=== PATIENT | male | born 1955 | race Caucasian/White ===

== ENCOUNTER 2020-12-28 10:34 | Outpatient (REF) | payer MEDICARE, OTHER, SELFPAY ==
[2020-12-28 13:20] LABS: MANUAL DIFF FLAG NO
[2020-12-28 13:21] LABS: Basophils Absolute Auto 0.1 X10*3/uL (0.0-0.2); Eosinophils Absolute Auto 0.1 X10*3/uL (0.0-0.4); Eosinophils Percent Auto 2.1 % (0-4); Hematocrit 42.9 % (42-52); Imm Gran Abs Auto 0.02 X10*3/uL (0.00-0.03); Imm Gran Pct Auto 0.4 % (0.0-0.4); Lymphocytes Absolute Auto 1.3 X10*3/uL (1.2-4.9); Lymphocytes Percent Auto 26.9 % (20-40); Mean Corpuscular HGB Conc 32.6 g/dl (31.0-36.0); Mean Corpuscular Hemoglobin 30.9 pg (27.0-33.0); Mean Corpuscular Volume 94.7 fL (80-98); Monocytes Absolute Auto 0.6 X10*3/uL (0.1-1.2); Neutrophils Absolute Auto 2.7 X10*3/uL (2.0-8.3); Neutrophils Percent Auto 56.6 % (45-73); Platelet Count 206 X10*3/uL (160-400); Red Blood Count 4.53 X10*6/uL (4.60-5.80); Red Cell Distribution Width 13.2 % (11.0-16.0); White Blood Count 4.8 X10*3/uL (4.8-10.8)
[2020-12-28 13:57] LABS: Alanine Aminotransferase 19 U/L (0-40); Albumin Level 4.2 g/dL (3.5-5.0); Alkaline Phosphatase 44 U/L (39-117); Anion Gap 12 (12-20); Aspartate Amino Transferase 25 U/L (5-37); Bilirubin Total 0.9 mg/dL (0.0-1.0); Blood Urea Nitrogen 18 mg/dL (9-16); Calcium 9.1 mg/dL (8.4-10.2); Carbon Dioxide 28 mmol/L (22-29); Chloride 104 mmol/L (96-108); Cholesterol 175 mg/dL; Estimated Glomerular Filt Rate > 60; Glucose Fasting 96 mg/dL (60-99); HDL Cholesterol 59 mg/dL; LDL Cholesterol Calculated 103 mg/dl; Potassium 4.9 mmol/L (3.3-5.1); Sodium 139 mmol/L (135-145); Total Protein 6.7 g/dL (6.5-8.0); Triglycerides 65 mg/dL
[2020-12-28 15:05] LABS: Prostate Specific Antigen 4.14 ng/mL (<0.05-4.0)
== END 2020-12-28 10:35 | disposition home or self-care (01) ==
LOC: HO.10HDL 10:34
PROVIDERS: Visit Provider Internal Medicine
DX: E78.00 Pure hypercholesterolemia, unspecified (principal); N40.0 Benign prostatic hyperplasia without lower urinary tract symptoms; J45.909 Unspecified asthma, uncomplicated; K57.90 Diverticulosis of intestine, part unspecified, without perforation or abscess without bleeding; Z12.5 Encounter for screening for malignant neoplasm of prostate
CPT/HCPCS: 36415; 80053; 80061; 84153; 85025

== ENCOUNTER 2021-01-24 08:43 | Outpatient (REF) | payer MEDICARE, OTHER, SELFPAY ==
[2021-01-24 13:13] LABS: PSA,Total (Free>4and<10) 4.47 ng/mL (0.00-4.00)
[2021-01-25 11:42] LABS: Free Prostate Spec Ag 0.8 ng/mL; Percent Free Prostate Spec Ag 19 % (calc) (>25); Prostate Specific Ag Total 4.2 ng/mL (< OR = 4.0)
== END 2021-01-24 08:44 | disposition home or self-care (01) ==
LOC: HO.HMGCLDS 08:43
PROVIDERS: PCP Internal Medicine; Visit Provider Internal Medicine
DX: Z12.5 Encounter for screening for malignant neoplasm of prostate (principal); R97.20 Elevated prostate specific antigen [PSA]
CPT/HCPCS: 36415; 84153; 84154

== ENCOUNTER 2021-03-14 10:42 | Outpatient (REF) | payer MEDICARE, OTHER, SELFPAY ==
--- NOTE | ~2021-03-14 | XR_ITS ---
EXAMINATION: XR CHEST CLINICAL INFORMATION: Pneumonia. COMPARISON: Chest radiograph dated 07/31/2012. TECHNIQUE: 2 views of the chest were obtained. FINDINGS: Small left and trace right-sided pleural effusions. Left basilar atelectasis versus early infiltrates. Findings are new when compared to the prior chest radiograph. No pneumothorax. Stable cardiomediastinal silhouette. XR/XR chest 2V IMPRESSION: Small left and trace right-sided pleural effusions as well as left basilar atelectasis versus infiltrates, new when compared to the prior chest radiograph.
== END 2021-03-14 10:43 | disposition home or self-care (01) ==
LOC: HO.XRAY 10:42
PROVIDERS: PCP Internal Medicine; Visit Provider Internal Medicine
DX: D64.9 Anemia, unspecified (principal); J18.9 Pneumonia, unspecified organism
CPT/HCPCS: 71046

== ENCOUNTER 2021-03-22 10:58 | Outpatient (REF) | payer MEDICARE, OTHER, SELFPAY ==
[2021-03-22 13:11] LABS: MANUAL DIFF FLAG NO
[2021-03-22 13:14] LABS: Basophils Absolute Auto 0.1 X10*3/uL (0.0-0.2); Basophils Percent Auto 0.8 % (0-2); Eosinophils Absolute Auto 0.1 X10*3/uL (0.0-0.4); Eosinophils Percent Auto 1.7 % (0-4); Hematocrit 40.9 % (42-52); Hemoglobin 13.7 g/dl (14.0-18.0); Imm Gran Abs Auto 0.04 X10*3/uL (0.00-0.03); Imm Gran Pct Auto 0.5 % (0.0-0.4); Lymphocytes Absolute Auto 1.2 X10*3/uL (1.2-4.9); Lymphocytes Percent Auto 15.3 % (20-40); Mean Corpuscular HGB Conc 33.5 g/dl (31.0-36.0); Mean Corpuscular Hemoglobin 31.2 pg (27.0-33.0); Mean Corpuscular Volume 93.2 fL (80-98); Mean Platelet Volume 9.7 fL (9.4-12.4); Monocytes Absolute Auto 0.9 X10*3/uL (0.1-1.2); Monocytes Percent Auto 11.3 % (2-11); Neutrophils Absolute Auto 5.4 X10*3/uL (2.0-8.3); Neutrophils Percent Auto 70.4 % (45-73); Platelet Count 351 X10*3/uL (160-400); Red Blood Count 4.39 X10*6/uL (4.60-5.80); Red Cell Distribution Width 11.9 % (11.0-16.0); White Blood Count 7.6 X10*3/uL (4.8-10.8)
[2021-03-22 13:53] LABS: Alanine Aminotransferase 39 U/L (0-40); Albumin Level 4.2 g/dL (3.5-5.0); Alkaline Phosphatase 51 U/L (39-117); Anion Gap 13 (12-20); Aspartate Amino Transferase 22 U/L (5-37); Bilirubin Total 0.4 mg/dL (0.0-1.0); Blood Urea Nitrogen 13 mg/dL (9-16); Calcium 9.4 mg/dL (8.4-10.2); Carbon Dioxide 26 mmol/L (22-29); Chloride 106 mmol/L (96-108); Estimated Glomerular Filt Rate > 60; Glucose Random 96 mg/dL (60-115); Potassium 4.4 mmol/L (3.3-5.1); Sodium 141 mmol/L (135-145)
== END 2021-03-22 10:59 | disposition home or self-care (01) ==
LOC: HO.10HDL 10:58
PROVIDERS: PCP Internal Medicine; Visit Provider Internal Medicine
DX: J45.909 Unspecified asthma, uncomplicated (principal); K57.90 Diverticulosis of intestine, part unspecified, without perforation or abscess without bleeding
CPT/HCPCS: 36415; 80053; 81241; 85025

== ENCOUNTER → 2021-03-28 07:38 | Outpatient (REF) | payer MEDICARE, OTHER, SELFPAY ==
--- NOTE | 2021-03-28 07:42 | CA_ITS ---
Transthoracic Echocardiogram Patient (Last, First, Middle): Malik Wylie S Gender: Male Date of : 1955 Age: 66 Procedure Date: 03/28/2021 Procedure Type: Transthoracic Echocardiogram Location: OP Height: 175.26 cm Weight: 67.59 kg BSA: 1.82 m2 Heart Rate: bpm BP: 122 / 60 mmHg Wet Process Technician: Referring MD: Sharan Silva MD Perfusionist: Dariusz Oconnor MD Symptoms: I26.99 PULMONARY EMBOLISOM ,J90 PLEURAL EFFUSION Study Quality: Good ECG Rhythm: Sinus Conclusions: - 1. Normal LV systolic function with impaired relaxation filling pattern 2. Mildly calcified aortic valve with probable early aortic stenosis 3. Normal RV systolic pressure 4. No pericardial effusion Findings Left Ventricle Normal left ventricular size, thickness, and systolic function. The visually estimated ejection fraction is between 60-65%. Spectral Doppler is indicative of an impaired relaxation filling pattern. E/E prime ratio is <8, consistent with normal filling pressures. Evidence suggests grade I (mild) diastolic dysfunction. Right Ventricle Normal right ventricular cavity size and systolic function. Atria The left atrium is normal in size. There is no evidence of interatrial shunt. The right atrium is normal in size. Aortic Valve There is mild calcification of the aortic valve. There is mild thickening of the aortic valve. The aortic valve area is 1.95 cm2. There is no aortic valve regurgitation. Mitral Valve There is mild anterior mitral leaflet thickening. There is mild mitral annular calcification. There is trace mitral valve regurgitation. There is no mitral valve stenosis. Pulmonic Valve The pulmonic valve is likely normal. Tricuspid Valve Likely normal tricuspid valve structure and function. There is trace tricuspid valve regurgitation. The right ventricular systolic pressure is normal. The right ventricular systolic pressure is 19 mmHg. Normal right atrial pressure. There is no evidence of pulmonary hypertension. Great Vessels All visible segments of the aorta are normal in size. The pulmonary artery was not well visualized. Venous The inferior vena cava is normal in size and collapses greater than 50% with inspiration. Pericardium/Pleural There is no evidence of pericardial effusion. Prior Study Comparison No significant change compared to prior study dated: 04/28/2020. Measurements 2D Linear Measurements IVSd: 1.15 0.6-0.9/0.6-1.0 cm LVIDd: 4.13 3.9-5.3/4.2-5.9 cm LVIDd Index: 2.27 2.4-3.2/2.2-3.1 cm/m2 LVIDs: 2.77 2.0-3.6 cm LVPWd: 1.04 0.7-1.1 cm Ao Root: 3.10 2.1-3.5 cm LA Diam: 3.40 2.7-3.8/3.0-4.0 cm LAIDs Index: 1.87 1.5-2.3 cm/m2 LV Mass: 189.27 67-162/88-224 g LV Mass Index: 103.99 43-95/49-115 g/m2 LVOT Diam: 2.10 3.0+(-)1.3 cm 2D Systolic Function EF 4C: 60.50 >55% EF 2C: 69.40 >55% EF BiP: 64.90 >55% Mitral Valve MV Pk E: 0.51 MV PK A: 0.68 MV Decel Time: 217.00 E/A: 0.70 E'Lateral: 6.96 E'Medial: 7.51 E/E' Med: 6.80 E/E' Lat: 7.30 PHT: 63.00 MVA PHT: 3.49 Decel Smyth: 2.35 Aortic Valve AoV Pk Serafin: 1.53 AoV Mn Serafin: 1.08 AoV VTI: 0.33 AoV Pk Grad: 9.00 Aov Mn Grad: 5.00 VIVEK Cont.VTI: 1.95 LVOT LVOT Pk Serafin: 0.83 LVOT Mn Serafin: 0.58 LVOT VTI: 0.19 LVOT Pk Grad: 3.00 LVOT Mn Grad: 2.00 LVOT Diam: 2.10 LVOT Area: 3.46 Diastolic Function MV Pk E: 0.51 MV Pk A: 0.68 E/A: 0.70 E'Medial: 7.51 E/E' Med: 6.80 E' Laterial: 6.96 E/E' Lat: 7.30 Right Ventricle TAPSE (mm): 27.00 Tricuspid Valve TR Pk Serafin: 2.00 TR Pk Grad: 16.00 RA Press: 3.00 RVSP: 19.00 Great Vessels Aorta Ao Root-2D: 3.10 2.0-3.7 cm Pulmonary Valve PV Pk Serafin: 0.86 Peak PV Grad: 3.00 Updated in Other Vendor System with Status of Final Dariusz Oconnor MD electronically signed on 03/28/2021 12:31:59 PM with status of Final
== END ==
LOC: HO.CARD 07:38
PROVIDERS: Visit Provider Internal Medicine
DX: I26.99 Other pulmonary embolism without acute cor pulmonale (principal); J90 Pleural effusion, not elsewhere classified
CPT/HCPCS: 93306

== ENCOUNTER 2021-03-30 15:48 | Outpatient (REF) | payer MEDICARE, OTHER, SELFPAY | END 2021-03-30 15:49 | disposition home or self-care (01) | LOC: HO.LAB 15:48 | PROVIDERS: PCP Internal Medicine; Visit Provider Internal Medicine | DX: I26.99 Other pulmonary embolism without acute cor pulmonale (principal) | CPT/HCPCS: 36415; 81240 ==

== ENCOUNTER 2022-01-11 07:44 | Outpatient (REF) | payer MEDICARE, OTHER, SELFPAY ==
[2022-01-11 11:00] LABS: MANUAL DIFF FLAG NO
[2022-01-11 11:07] LABS: Basophils Percent Auto 0.8 % (0-2); Eosinophils Absolute Auto 0.1 X10*3/uL (0.0-0.4); Eosinophils Percent Auto 2.6 % (0-4); Hematocrit 42.7 % (42.0-52.0); Hemoglobin 14.3 g/dl (14.0-18.0); Imm Gran Abs Auto 0.02 X10*3/uL (0.00-0.03); Imm Gran Pct Auto 0.4 % (0.0-0.4); Lymphocytes Absolute Auto 1.5 X10*3/uL (1.2-4.9); Lymphocytes Percent Auto 29.4 % (20-40); Mean Corpuscular HGB Conc 33.5 g/dl (31.0-36.0); Mean Corpuscular Hemoglobin 31.6 pg (27.0-33.0); Mean Corpuscular Volume 94.3 fL (80.0-98.0); Mean Platelet Volume 10.2 fL (9.4-12.4); Monocytes Absolute Auto 0.6 X10*3/uL (0.1-1.2); Monocytes Percent Auto 12.4 % (2-11); Neutrophils Absolute Auto 2.8 x10*3/uL (2.0-8.3); Neutrophils Percent Auto 54.4 % (45-73); Platelet Count 201 X10*3/uL (160-400); Red Blood Count 4.53 X10*6/uL (4.60-5.80); Red Cell Distribution Width 13.7 % (11.0-16.0); White Blood Count 5.1 X10*3/uL (4.8-10.8)
[2022-01-11 11:24] LABS: Alanine Aminotransferase 21 U/L (0-40); Albumin Level 4.2 g/dL (3.5-5.0); Alkaline Phosphatase 36 U/L (39-117); Anion Gap 11 (12-20); Aspartate Amino Transferase 24 U/L (5-37); Bilirubin Total 1.1 mg/dL (0.0-1.0); Blood Urea Nitrogen 16 mg/dL (9-16); Carbon Dioxide 25 mmol/L (22-29); Chloride 107 mmol/L (96-108); Cholesterol 157 mg/dL; Estimated Glomerular Filt Rate > 60; Glucose Fasting 103 mg/dL (60-99); HDL Cholesterol 52 mg/dL; LDL Cholesterol Calculated 93 mg/dl; Potassium 4.2 mmol/L (3.3-5.1); Sodium 139 mmol/L (135-145); Total Protein 6.6 g/dL (6.5-8.0); Triglycerides 62 mg/dL
== END 2022-01-11 07:45 | disposition home or self-care (01) ==
LOC: HO.HMGCLDS 07:44
PROVIDERS: Visit Provider Internal Medicine
DX: E78.00 Pure hypercholesterolemia, unspecified (principal); N40.0 Benign prostatic hyperplasia without lower urinary tract symptoms; K57.90 Diverticulosis of intestine, part unspecified, without perforation or abscess without bleeding
CPT/HCPCS: 36415; 80053; 80061; 85025

== ENCOUNTER → 2022-03-16 09:16 | Outpatient (REF) | payer MEDICARE, OTHER, SELFPAY ==
--- NOTE | 2022-03-16 09:23 | CA_ITS ---
Transthoracic Echocardiogram Patient (Last, First, Middle): Malik Wylie S Gender: Male Date of : 1955 Age: 67 Procedure Date: 03/16/2022 Procedure Type: Transthoracic Echocardiogram Location: OP Height: 170.18 cm Weight: 68.04 kg BSA: 1.79 m2 Heart Rate: bpm BP: 110 / 80 mmHg Caddy/Caddie Supervisor: TO Referring MD: Sharan Silva MD Bread Stacker: Dariusz Oconnor MD Symptoms: CALCIFIED AV I35.8 Study Quality: Fair ECG Rhythm: Sinus Conclusions: - 1. Normal LV systolic function with grade 1 diastolic dysfunction 2. Mild fibrocalcific aortic valve changes as well as mild mitral calcification noted with normal cardiac valvular Dopplers 3. No pericardial effusion Findings Left Ventricle Normal left ventricular size, thickness, and systolic function. The visually estimated ejection fraction is between 60-65%. Spectral Doppler is indicative of an impaired relaxation filling pattern. E/E prime ratio is <8, consistent with normal filling pressures. Evidence suggests grade I (mild) diastolic dysfunction. Right Ventricle Normal right ventricular cavity size and systolic function. Atria Both atria are normal in size. There is no evidence of interatrial shunt. Aortic Valve There is mild calcification of the aortic valve. There is no aortic valve stenosis. There is no aortic valve regurgitation. Mitral Valve There is mild posterior mitral leaflet thickening. There is mild mitral annular calcification. There is trace mitral valve regurgitation. There is no mitral valve stenosis. Pulmonic Valve The pulmonic valve was not well visualized. Tricuspid Valve Likely normal tricuspid valve structure and function. Tricuspid regurgitation envelope is inadequate for calculation of right ventricular systolic pressure. Normal right atrial pressure. Great Vessels All visible segments of the aorta are normal in size. The pulmonary artery was not well visualized. Venous The inferior vena cava is normal in size and collapses greater than 50% with inspiration. Pericardium/Pleural There is no evidence of pericardial effusion. Measurements 2D Linear Measurements IVSd: 1.19 0.6-0.9/0.6-1.0 cm LVIDd: 3.67 3.9-5.3/4.2-5.9 cm LVIDd Index: 2.05 2.4-3.2/2.2-3.1 cm/m2 LVIDs: 2.32 2.0-3.6 cm LVPWd: 1.26 0.7-1.1 cm LA Diam: 3.50 2.7-3.8/3.0-4.0 cm LAIDs Index: 1.96 1.5-2.3 cm/m2 LV Mass: 186.98 67-162/88-224 g LV Mass Index: 104.46 43-95/49-115 g/m2 LVOT Diam: 2.20 3.0+(-)1.3 cm 2D Systolic Function EF 4C: 57.10 >55% EF 2C: 60.50 >55% EF BiP: 58.10 >55% Mitral Valve MV Pk E: 0.44 MV PK A: 0.56 MV Decel Time: 206.00 E/A: 0.80 E'Lateral: 6.09 E'Medial: 5.12 E/E' Med: 8.50 E/E' Lat: 7.20 PHT: 60.00 MVA PHT: 3.67 Decel [place]: 2.12 Aortic Valve AoV Pk Serafin: 1.27 AoV Mn Serafin: 0.89 AoV VTI: 0.23 AoV Pk Grad: 6.00 Aov Mn Grad: 4.00 VIVEK Cont.VTI: 2.46 LVOT LVOT Pk Serafin: 0.74 LVOT Mn Serafin: 0.50 LVOT VTI: 0.15 LVOT Pk Grad: 2.00 LVOT Mn Grad: 1.00 LVOT Diam: 2.20 LVOT Area: 3.80 Diastolic Function MV Pk E: 0.44 MV Pk A: 0.56 E/A: 0.80 E'Medial: 5.12 E/E' Med: 8.50 E' Laterial: 6.09 E/E' Lat: 7.20 Right Ventricle TAPSE (mm): 22.60 TVS' Serafin: 13.60 Tricuspid Valve RA Press: 3.00 Great Vessels Aorta Sinus of Valsalva: 3.42 2.0-3.[address] [place]: 2.89 1.7-3.4 cm Ao Asc: 3.20 2.1-3.4 cm Updated in Other Vendor System with Status of Final Dariusz Oconnor MD electronically signed on 03/16/2022 2:23:31 PM with status of Final
== END ==
LOC: HO.CARD 09:16
PROVIDERS: PCP Internal Medicine; Visit Provider Internal Medicine
DX: I35.8 Other nonrheumatic aortic valve disorders (principal)
CPT/HCPCS: 93306

== ENCOUNTER 2023-01-03 14:14 | Outpatient (REF) | payer MEDICARE, OTHER, SELFPAY ==
[2023-01-03 16:33] LABS: MANUAL DIFF FLAG NO
[2023-01-03 17:49] LABS: Basophils Absolute Auto 0.1 X10*3/uL (0.0-0.2); Basophils Percent Auto 1.1 % (0-2); Eosinophils Absolute Auto 0.1 X10*3/uL (0.0-0.4); Eosinophils Percent Auto 1.7 % (0-4); Hematocrit 42.8 % (42.0-52.0); Hemoglobin 14.3 g/dl (14.0-18.0); Imm Gran Abs Auto 0.01 X10*3/uL (0.00-0.03); Imm Gran Pct Auto 0.2 % (0.0-0.4); Lymphocytes Absolute Auto 1.7 X10*3/uL (1.2-4.9); Lymphocytes Percent Auto 26.3 % (20-40); Mean Corpuscular HGB Conc 33.4 g/dl (31.0-36.0); Mean Corpuscular Hemoglobin 31.8 pg (27.0-33.0); Mean Corpuscular Volume 95.3 fL (80.0-98.0); Mean Platelet Volume 10.2 fL (9.4-12.4); Monocytes Absolute Auto 0.6 X10*3/uL (0.1-1.2); Monocytes Percent Auto 9.8 % (2-11); Neutrophils Percent Auto 60.9 % (45-73); Platelet Count 215 X10*3/uL (160-400); Red Blood Count 4.49 X10*6/uL (4.60-5.80); Red Cell Distribution Width 13.3 % (11.0-16.0); White Blood Count 6.5 X10*3/uL (4.8-10.8)
[2023-01-03 18:04] LABS: Alanine Aminotransferase 20 U/L (0-40); Albumin Level 4.3 g/dL (3.5-5.0); Alkaline Phosphatase 39 U/L (39-117); Anion Gap 13 (12-20); Aspartate Amino Transferase 26 U/L (5-37); Bilirubin Total 1.2 mg/dL (0.0-1.0); Blood Urea Nitrogen 14 mg/dL (9-16); Calcium 9.6 mg/dL (8.4-10.2); Carbon Dioxide 26 mmol/L (22-29); Chloride 108 mmol/L (96-108); Cholesterol 172 mg/dL; Estimated Glomerular Filt Rate > 60; Glucose Fasting 98 mg/dL (60-99); HDL Cholesterol 50 mg/dL; LDL Cholesterol Calculated 99 mg/dl; Potassium 4.6 mmol/L (3.3-5.1); Sodium 142 mmol/L (135-145); Total Protein 6.7 g/dL (6.5-8.0); Triglycerides 115 mg/dL
== END 2023-01-03 14:15 | disposition home or self-care (01) ==
LOC: HO.HMGCLDS 14:14
PROVIDERS: PCP Internal Medicine; Visit Provider Internal Medicine
DX: Z00.00 Encounter for general adult medical examination without abnormal findings (principal); E78.9 Disorder of lipoprotein metabolism, unspecified; Z20.2 Contact with and (suspected) exposure to infections with a predominantly sexual mode of transmission
CPT/HCPCS: 36415; 80053; 80061; 83735; 85025

== ENCOUNTER 2023-03-14 14:47 | Outpatient (REF) | payer MEDICARE, OTHER, SELFPAY ==
[2023-03-14 16:32] LABS: Appearance Urine Clear; Color Urine Yellow; Glucose Urine UA Negative (Negative); Leukocyte Esterase Urine Negative (Negative); Nitrite Urine Negative (Negative); PH 5.5 (5.0-9.0); Urine Blood Negative (Negative); Urine Ketones 15 mg/dL (Negative); Urine Protein Trace mg/dL (Neg-Trace)
== END 2023-03-14 14:48 | disposition home or self-care (01) ==
LOC: HO.LAB 14:47
PROVIDERS: PCP Internal Medicine; Visit Provider Internal Medicine
DX: R30.0 Dysuria (principal)
CPT/HCPCS: 81003; 87086

== ENCOUNTER 2023-08-09 10:53 | Outpatient (REF) | payer MEDICARE, OTHER, SELFPAY ==
--- NOTE | ~2023-08-09 | XR_ITS ---
EXAMINATION: XR CHEST CLINICAL INFORMATION: Cough. COMPARISON: Chest radiograph 03/14/2021. TECHNIQUE: 2 views of the chest were obtained. FINDINGS: Normal appearance of the cardiomediastinal silhouette. Central peribronchial cuffing. No dense consolidation, pleural effusion or pneumothorax. Subtle approximately 0.9 cm nodular-like density projecting over the left lower lobe in between the anterior left-sided fifth and sixth ribs. Thoracic spondylosis. No acute osseous findings. XR/XR chest 2V IMPRESSION: 1. Central peribronchial cuffing which is nonspecific and could be associated with asthma, bronchitis, reactive airways disease or atypical infections. 2. Subtle nodular-like density projecting over the left lower lobe. Recommend correlation with a chest CT. The report will be called to the ordering clinician by a [place] [facility] Physician Dental Ceramist Assistant.
== END 2023-08-09 10:54 | disposition home or self-care (01) ==
LOC: HO.XRAY 10:53
PROVIDERS: PCP Internal Medicine; Visit Provider Internal Medicine
DX: R05.9 Cough, unspecified (principal); R50.9 Fever, unspecified
CPT/HCPCS: 71046

== ENCOUNTER 2023-09-03 11:53 | Outpatient (REF) | payer MEDICARE, OTHER, SELFPAY ==
--- NOTE | ~2023-09-03 | XR_ITS ---
EXAMINATION: XR CHEST CLINICAL INFORMATION: Follow-up pneumonia COMPARISON: Chest x-ray on 08/09/2023 TECHNIQUE: 2 views of the chest were obtained. FINDINGS: vascularity. LUNGS: Lungs are clear. Persistent peribronchial cuffing is seen. No pneumothorax is seen. BONES: Bony skeleton is intact. XR/XR chest 2V IMPRESSION: 1. Unchanged peribronchial cuffing, compatible with chronic bronchitis. 2. Interval resolution of the subtle nodular density in left lower mid lung. 3. No radiographic signs of acute cardiopulmonary process.
== END 2023-09-03 11:54 | disposition home or self-care (01) ==
LOC: HO.XRAY 11:53
PROVIDERS: PCP Internal Medicine; Visit Provider Internal Medicine
DX: J18.9 Pneumonia, unspecified organism (principal)
CPT/HCPCS: 71046

== ENCOUNTER 2023-10-19 12:13 | Outpatient (REF) | payer MEDICARE, OTHER, SELFPAY ==
[2023-10-19 12:41] LABS: MANUAL DIFF FLAG NO
[2023-10-19 12:45] LABS: Basophils Absolute Auto 0.1 X10*3/uL (0.0-0.2); Eosinophils Absolute Auto 0.2 X10*3/uL (0.0-0.4); Eosinophils Percent Auto 2.8 % (0-4); Hematocrit 42.6 % (42.0-52.0); Hemoglobin 14.6 g/dl (14.0-18.0); Imm Gran Abs Auto 0.04 X10*3/uL (0.00-0.03); Imm Gran Pct Auto 0.6 % (0.0-0.4); Lymphocytes Absolute Auto 1.6 X10*3/uL (1.2-4.9); Lymphocytes Percent Auto 23.9 % (20-40); Mean Corpuscular HGB Conc 34.3 g/dl (31.0-36.0); Mean Corpuscular Hemoglobin 31.9 pg (27.0-33.0); Mean Platelet Volume 9.6 fL (9.4-12.4); Monocytes Absolute Auto 0.8 X10*3/uL (0.1-1.2); Monocytes Percent Auto 11.5 % (2-11); Neutrophils Absolute Auto 4.1 x10*3/uL (2.0-8.3); Neutrophils Percent Auto 60.2 % (45-73); Platelet Count 221 X10*3/uL (160-400); Red Blood Count 4.58 X10*6/uL (4.60-5.80); Red Cell Distribution Width 13.4 % (11.0-16.0); White Blood Count 6.8 X10*3/uL (4.8-10.8)
[2023-10-19 13:39] LABS: Anion Gap 12 (12-20); Blood Urea Nitrogen 17 mg/dL (9-16); C Reactive Protein < 0.10 mg/dL (< or = 0.50); Calcium 9.6 mg/dL (8.4-10.2); Carbon Dioxide 26 mmol/L (22-29); Chloride 106 mmol/L (96-108); Estimated Glomerular Filt Rate > 60; Glucose Random 98 mg/dL (60-115); Potassium 4.1 mmol/L (3.3-5.1); Sodium 140 mmol/L (135-145)
[2023-10-22 09:49] LABS: Alpha 1 Anti-trypsin 163 mg/dL (83-199)
== END 2023-10-19 12:14 | disposition home or self-care (01) ==
LOC: HO.10HDL 12:13
PROVIDERS: Visit Provider Internal Medicine
DX: J40 Bronchitis, not specified as acute or chronic (principal); Z87.440 Personal history of urinary (tract) infections
CPT/HCPCS: 36415; 80048; 82103; 85025; 86140

== ENCOUNTER 2024-01-10 10:37 | Outpatient (REF) | payer MEDICARE, OTHER, SELFPAY ==
[2024-01-10 11:42] LABS: MANUAL DIFF FLAG NO
[2024-01-10 12:45] LABS: Basophils Absolute Auto 0.1 X10*3/uL (0.0-0.2); Basophils Percent Auto 1.1 % (0-2); Eosinophils Percent Auto 0.6 % (0-4); Hematocrit 38.8 % (42.0-52.0); Hemoglobin 13.3 g/dl (14.0-18.0); Imm Gran Abs Auto 0.02 X10*3/uL (0.00-0.03); Imm Gran Pct Auto 0.3 % (0.0-0.4); Lymphocytes Absolute Auto 1.6 X10*3/uL (1.2-4.9); Lymphocytes Percent Auto 26.1 % (20-40); Mean Corpuscular HGB Conc 34.3 g/dl (31.0-36.0); Mean Corpuscular Hemoglobin 32.4 pg (27.0-33.0); Mean Corpuscular Volume 94.6 fL (80.0-98.0); Mean Platelet Volume 9.8 fL (9.4-12.4); Monocytes Absolute Auto 0.6 X10*3/uL (0.1-1.2); Monocytes Percent Auto 9.9 % (2-11); Neutrophils Absolute Auto 3.8 x10*3/uL (2.0-8.3); Platelet Count 218 X10*3/uL (160-400); Red Cell Distribution Width 14.4 % (11.0-16.0); White Blood Count 6.2 X10*3/uL (4.8-10.8)
[2024-01-15 13:03] LABS: Class Alternaria alternata 0; Class Aspergillus fumigatus 0; Class Bermuda Grass 0; Class Birch 0; Class Cat Dander 0; Class Cladosporium herbarum 0; Class Cockroach 0; Class Common Ragweed 0/1; Class Cottonwood 0; Class Derm. pterony 1; Class Dermatophagoides farinae 1; Class Dog Dander 0; Class Elm 0; Class Maple Box Elder 0; Class Mountain Cedar 0; Class Mouse Urine Protein 0; Class Mugwort 0; Class Oak 0; Class Penicillium crysogenum 0; Class Rough Pigweed 0; Class Sheep Sorrel 0; Class Sycamore 0; Class Timothy Grass 0; Class Walnut Tree 0; Class White Ash 0; Class White Mulberry 0; D001 IgE D pteronyssinus 0.44 kU/L; D002 - IgE D farinae 0.37 kU/L; E001 - IgE Cat Dander <0.10 kU/L; E005 - IgE Dog Dander <0.10 kU/L; E072-IgE Mouse Urine <0.10 kU/L; G002 IgE Bermuda Grass <0.10 kU/L; G006 - IgE Timothy Grass <0.10 kU/L; I006-IgE Cockroach, German <0.10 kU/L; Immunoglobulin E 7 kU/L (<OR=114); M001 IgE Penicillium chrysogen <0.10 kU/L; M002 - IgE Cladosporium herbar <0.10 kU/L; M003 - IgE Aspergillus fumigat <0.10 kU/L; M006 - IgE Alternaria alternat <0.10 kU/L; T001 IgE Maple/Box Elder <0.10 kU/L; T003 IgE Common Silver Birch <0.10 kU/L; T006 - IgE Cedar, Mountain <0.10 kU/L; T007 - IgE Oak, White <0.10 kU/L; T008 IgE Elm, American <0.10 kU/L; T010 - IgE Walnut <0.10 kU/L; T011 - IgE Maple Leaf Sycamore <0.10 kU/L; T014 - IgE Cottonwood <0.10 kU/L; T015 - IgE Ash, White <0.10 kU/L; T070 - IgE White Mulberry <0.10 kU/L; W001 - IgE Ragweed, Short 0.12 kU/L; W006 - IgE Mugwort <0.10 kU/L; W014 IgE Pigweed, Common <0.10 kU/L; W018 IgE Sheep Sorrel <0.10 kU/L
== END 2024-01-10 10:38 | disposition home or self-care (01) ==
LOC: HO.LAB 10:37
PROVIDERS: PCP Internal Medicine; Visit Provider Internal Medicine Pulmonary Disease
DX: J42 Unspecified chronic bronchitis (principal); Z91.09 Other allergy status, other than to drugs and biological substances
CPT/HCPCS: 36415; 82785; 85025; 86003; 99202

== ENCOUNTER 2024-01-10 10:37 | Outpatient (AMB) | payer MEDICARE, OTHER, SELFPAY ==
[2024-01-10 10:39] VITALS: BP 124/86; PULSE 106; O2SAT 100; BMI 10.5
--- NOTE | 2024-01-10 10:39 | MHC.OFFVIS ---
Vital Signs 01/10/24 10:39 Height 5 ft 7 in Weight 67 lb BMI 10.5 BP 124/86 Blood Pressure Location Rt brachial Position Sitting Pulse 106 H Pulse Source Doppler Pulse Oximetry (%) 100 Oxygen Delivery Method Room Air Intake Visit Reasons: bronchitis Allergies Penicillins Allergy (Severe, Verified 01/10/24 10:47) hives Sulfa (Sulfonamide Antibiotics) Allergy (Severe, Verified 01/10/24 10:47) Hives HPI HPI bronchitis: Details: 69-year-old gentleman, nonsmoker, with recent history of bronchitic symptoms ongoing since July of 2023, treated with several courses of antibiotic /prednisone, also tried on Wixela and albuterol MDI essentially with no significant changes. Patient did have CT chest that was essentially. Patient does state that his symptoms resolved when he was on vacation to [facility] And recalls when he came back. Patient does have a history of prior environmental allergies with allergy injections approximately 20 years prior. Does not have any pets at this time. Patient denies exposure to industrial dusts. [facility] Social History (Updated 01/10/24 @ 10:49 by Genie Patel [facility]) Patient Tobacco Use Status: Never used Tobacco Review of Systems Card Denies dyspnea and Denies dyspnea on exertion Resp Reports cough, Reports excessive phlegm production, Denies dyspnea, Denies dyspnea on exertion and Reports wheezing ( Inspiratory) Aller/Immun Reports wheezing ( Inspiratory) Physical Exam Vital Signs: Last Vital Signs Pulse 106 H 01/10/24 10:39 BP 124/86 01/10/24 10:39 Pulse Ox 100 01/10/24 10:39 Oxygen Delivery Method Room Air 01/10/24 10:39 BMI result Body Mass Index 10.5 Const General: no acute distress and alert Nutritional Appearance: not obese Orientation/consciousness: Other orientation findings ( oriented) HEENT Head: Yes atraumatic Eyes General: appearance normal, both eyes and all related structures Sclerae: sclerae normal EOM: EOMs intact bilaterally Neck Neck: Yes supple Lymphatic: no lymphadenopathy noted Resp Effort & Inspection: normal respiratory effort and no use of accessory muscles Auscultation: clear to auscultation bilaterally Cardio Rate: regular rate Rhythm: regular rhythm Heart sounds: no gallops, no murmurs and no rubs Skin General skin exam: other ( warm) Extrem General: No clubbing, No cyanosis and No edema Assessment & Plan Assessment & Plan (1) Environmental allergies: Code(s): Z91.09 - Other allergy status, other than to drugs and biological substances Category: Medical (2) Chronic bronchitis: Code(s): J42 - Unspecified chronic bronchitis Category: Medical Plan results of CT chest from [facility] reviewed and essentially normal. Likely underlying allergic bronchitis. Will obtain IgE level, CBC with differential, and RAST panel for further evaluation. Orders: Orders Resp Allergy Profile Region I Today Z91.09 - Other allergy status, other than to drugs and biological substances Complete Blood Count Auto Diff Today Z91.09 - Other allergy status, other than to drugs and biological substances Coding Level of Care Code New Pt Level 4 (85928) Diagnoses Environmental allergies Z91.09 Chronic bronchitis J42
== END 2024-01-10 11:09 | disposition home or self-care (01) ==
PROVIDERS: PCP Internal Medicine; Visit Provider Internal Medicine Pulmonary Disease
DX: Z91.09 Other allergy status, other than to drugs and biological substances (principal); J42 Unspecified chronic bronchitis
CPT/HCPCS: 99204

== ENCOUNTER 2024-03-18 10:00 | Outpatient (REF) | payer MEDICARE, OTHER, SELFPAY ==
[2024-03-18 13:38] LABS: MANUAL DIFF FLAG NO
[2024-03-18 13:44] LABS: Basophils Absolute Auto 0.1 X10*3/uL (0.0-0.2); Eosinophils Absolute Auto 0.1 X10*3/uL (0.0-0.4); Eosinophils Percent Auto 1.8 % (0-4); Hemoglobin 14.6 g/dl (14.0-18.0); Imm Gran Abs Auto 0.01 X10*3/uL (0.00-0.03); Imm Gran Pct Auto 0.2 % (0.0-0.4); Lymphocytes Absolute Auto 1.6 X10*3/uL (1.2-4.9); Lymphocytes Percent Auto 27.3 % (20-40); Mean Corpuscular Hemoglobin 31.6 pg (27.0-33.0); Mean Corpuscular Volume 93.1 fL (80.0-98.0); Mean Platelet Volume 9.7 fL (9.4-12.4); Monocytes Absolute Auto 0.7 X10*3/uL (0.1-1.2); Monocytes Percent Auto 12.2 % (2-11); Neutrophils Absolute Auto 3.4 x10*3/uL (2.0-8.3); Neutrophils Percent Auto 57.5 % (45-73); Platelet Count 230 X10*3/uL (160-400); Red Blood Count 4.62 X10*6/uL (4.60-5.80); Red Cell Distribution Width 12.4 % (11.0-16.0)
[2024-03-18 13:59] LABS: Alanine Aminotransferase 20 U/L (0-40); Albumin Level 4.3 g/dL (3.5-5.0); Alkaline Phosphatase 48 U/L (39-117); Anion Gap 13 (12-20); Aspartate Amino Transferase 24 U/L (5-37); Bilirubin Total 0.5 mg/dL (0.0-1.0); Blood Urea Nitrogen 16 mg/dL (9-16); Calcium 9.8 mg/dL (8.4-10.2); Carbon Dioxide 26 mmol/L (22-29); Chloride 105 mmol/L (96-108); Cholesterol 181 mg/dL (<200); Estimated Glomerular Filt Rate > 60; Glucose Fasting 105 mg/dL (60-99); HDL Cholesterol 52 mg/dL (>40); LDL Cholesterol Calculated 110 mg/dL (<100); Potassium 4.4 mmol/L (3.3-5.1); Sodium 140 mmol/L (135-145); Total Protein 7.2 g/dL (6.5-8.0); Triglycerides 97 mg/dL (<150)
[2024-03-18 14:19] LABS: Prostate Specific Antigen Scr 8.02 ng/mL (<0.05-4.0)
== END 2024-03-18 10:01 | disposition home or self-care (01) ==
LOC: HO.HMGCLDS 10:00
PROVIDERS: PCP Internal Medicine; Visit Provider Internal Medicine
DX: Z12.5 Encounter for screening for malignant neoplasm of prostate (principal); E78.00 Pure hypercholesterolemia, unspecified; N40.0 Benign prostatic hyperplasia without lower urinary tract symptoms; K57.90 Diverticulosis of intestine, part unspecified, without perforation or abscess without bleeding
CPT/HCPCS: 36415; 80053; 80061; 84153; 85025

== ENCOUNTER 2024-04-04 09:10 | Outpatient (AMB) | payer MEDICARE, OTHER, SELFPAY ==
--- NOTE | 2024-04-04 09:14 | MHC.OFFVIS ---
Vital Signs 04/04/24 09:15 Height 5 ft 7 in Weight 151 lb 0.266 oz BMI 23.6 BP 132/78 Blood Pressure Location Lt brachial Position Sitting Pulse 83 Pulse Source Doppler Pulse Oximetry (%) 98 Oxygen Delivery Method Room Air Intake Visit Reasons: Bronchitis Allergies Penicillins Allergy (Severe, Verified 01/10/24 10:47) hives Sulfa (Sulfonamide Antibiotics) Allergy (Severe, Verified 01/10/24 10:47) Hives HPI HPI Bronchitis: Details: 69-year-old gentleman, nonsmoker, with recent history of bronchitic symptoms ongoing since July of 2023, treated with several courses of antibiotic /prednisone, also tried on Wixela and albuterol MDI essentially with no significant changes. Patient did have CT chest that was essentially normal. Patient does state that his symptoms resolved when he was on vacation to [facility] and return when he came back. Patient does have a history of prior environmental allergies with allergy injections approximately 20 years prior. Does not have any pets at this time. Patient denies exposure to industrial dusts. After the last office visit patient had immunologic testing showing allergies to adequate and dust mites. He is interested in sublingual immunologic therapy. Patient also states that with change in weather his symptoms also improved somewhat. [facility] Social History (Updated 01/10/24 @ 10:49 by TANMAY Yu) Patient Tobacco Use Status: Never used Tobacco Physical Exam Vital Signs: Last Vital Signs Pulse 83 04/04/24 09:15 BP 132/78 04/04/24 09:15 Pulse Ox 98 04/04/24 09:15 Oxygen Delivery Method Room Air 04/04/24 09:15 BMI result Body Mass Index 23.6 Const General: no acute distress and alert Nutritional Appearance: not obese HEENT Head: Yes atraumatic Eyes General: appearance normal, both eyes and all related structures Sclerae: sclerae normal EOM: EOMs intact bilaterally Neck Neck: Yes supple Lymphatic: no lymphadenopathy noted Resp Effort & Inspection: normal respiratory effort and no use of accessory muscles Cardio Rate: regular rate Skin General skin exam: other ( warm) Extrem General: No clubbing and No cyanosis Assessment & Plan Assessment & Plan (1) Chronic bronchitis: Code(s): J42 - Unspecified chronic bronchitis Category: Medical (2) Environmental allergies: Code(s): Z91.09 - Other allergy status, other than to drugs and biological substances Category: Medical Plan Appears to have environmental allergies as minute etiology for his symptoms. At this time patient was to discuss possible sublingually immunologic therapy with ENT. Coding Level of Care Code Est Pt Level 3 (16840) Diagnoses Chronic bronchitis J42 Environmental allergies Z91.09
[2024-04-04 09:15] VITALS: BP 132/78; PULSE 83; O2SAT 98; BMI 23.6
== END 2024-04-04 09:36 | disposition home or self-care (01) ==
PROVIDERS: PCP Internal Medicine; Visit Provider Internal Medicine Pulmonary Disease
DX: J42 Unspecified chronic bronchitis (principal); Z91.09 Other allergy status, other than to drugs and biological substances
CPT/HCPCS: 99213

== ENCOUNTER → 2024-04-04 09:10 | Outpatient (BNVA) | payer MEDICARE, OTHER, SELFPAY | PROVIDERS: PCP Internal Medicine; Visit Provider Internal Medicine Pulmonary Disease | DX: J42 Unspecified chronic bronchitis (principal); Z91.09 Other allergy status, other than to drugs and biological substances | CPT/HCPCS: 99212 ==

== ENCOUNTER 2024-10-20 11:21 | Outpatient (AMB) | payer MEDICARE, OTHER, SELFPAY ==
[2024-10-20 11:40] VITALS: BP 122/74; PULSE 88; TEMP 36.5; O2SAT 99; BMI 23.8
--- NOTE | 2024-10-20 11:40 | A.OFFPC_ITS ---
Vital Signs 10/20/24 11:40 Height 5 ft 7 in Weight 152 lb BMI 23.8 BP 122/74 Blood Pressure Location Lt brachial Position Sitting Pulse 88 Pulse Source Pulse Oximeter Temp 97.7 F Temp Source Temporal Artery Scan Pulse Oximetry (%) 99 Oxygen Delivery Method Room Air Intake Visit Reasons: Oral Thrush Hammer Fitter Required: No Accompanied by: Self / Same As Patient Allergies Penicillins Allergy (Severe, Verified 10/20/24 11:41) hives Sulfa (Sulfonamide Antibiotics) Allergy (Severe, Verified 10/20/24 11:41) Hives Tobacco use date assessed: 10/20/24 Fall risk assessment: No Falls in past year Last assessed Fall Risk: 10/20/24 Dental Screening Dental Screen Date: 10/20/24 Did you have a dental visit in the last 12 months?: Yes Did you have a dental problem in the last 6 months where you did not have access to dental care?: No PFSH Family History (Updated 10/20/24 @ 12:06 by TANMAY Cancino) Mother Cancer Father Blood clot in vein Social History Housing: Apartment Patient Tobacco Use Status: Never used Tobacco e-Cigarette/Vaping Use: Never Used service: No Current occupational status: retired Cognitive needs: No Hearing needs: No Vision needs: Yes (rx glasses) Questionnaire PHQ-9 Over the last 2 weeks, how often have you been bothered by any of the following problems? 1. Little interest or pleasure in doing things: not at all 2. Feeling down, depressed, or hopeless: not at all 3. Trouble falling or staying asleep, or sleeping too much: not at all 4. Feeling tired or having little energy: not at all 5. Poor appetite or overeating: not at all 6. Feeling bad about yourself - or that you are a failure or have let yourself or your family down: not at all 7. Trouble concentrating on things, such as reading the newspaper or watching television: not at all 8. Moving or speaking so slowly that other people could have noticed. Or the opposite - being so fidgety or restless that you have been moving around a lot more than usual: not at all 9. Thoughts that you would be better off or of hurting yourself in some way: not at all Total score: 0 Source: Developed by Drs. Foreign Moffett, Belia Tapia, Bhavesh Ty and colleagues, with an educational jean from [employer]. Thrive Questionnaire Date Thrive assessed: 10/20/24 I am a: Patient Within the past 12 months, did the food you bought not last and you didn't have the money to get more?: Never true Within the past 12 months, did you worry whether your food would run out before you got money to buy more?: Never true Do you have trouble paying for medicines?: No Do you have trouble getting transportation to medical appointments?: No Do you have trouble paying your heating and electricity bill?: No Do you have trouble taking care of your child, family member or friend?: No Do you have trouble with day-to-day activities such as bathing, preparing meals, shopping, managing finances, etc.?: No Are you currently unemployed and looking for a job?: No Are you interested in more education?: No THRIVE Score: 0 AUDIT C Alcohol Use Questionnaire (AUDIT-C) 1. How often do you have a drink containing alcohol?: 4 or more times a week 2. How many drinks containing alcohol do you have on a typical day when you are drinking?: 1 or 2 3. How often do you have six or more drinks on one occasion?: Never Total Score: 4 LA-7 AMB Questionnaire LA-7 Date LA - 7 assessed: 10/20/24 Feeling nervous, anxious, or on edge: 0 = Not at all Not being able to stop or control worryin = Not at all Worrying too much about different things: 0 = Not at all Trouble relaxin = Not at all Being so restless that it is hard to sit still: 0 = Not at all Becoming easily annoyed or irritable: 0 = Not at all Feeling afraid as if something awful might happen: 0 = Not at all Total LA-7 score (0-4 normal; 5-9 mild; 10-14 moderate; 15-21 severe): 0 Source: Developed by Drs. Foreign Moffett, Bhavesh Roberson and colleagues, with an educational jean from [employer]. Physical exam (Primary Care) Vital Signs: Last Vital Signs Temp 97.7 F 10/20/24 11:40 Pulse 88 10/20/24 11:40 BP 122/74 10/20/24 11:40 Pulse Ox 99 10/20/24 11:40 Oxygen Delivery Method Room Air 10/20/24 11:40 BMI result Body Mass Index 23.8 Tobacco/Smoking Status: Tobacco use Status Tobacco use date assessed 10/20/24 10/20/24 11:43 Patient Tobacco Use Status Never used Tobacco 10/20/24 11:43 e-Cigarette/Vaping Use Never Used 10/20/24 11:43 PHQ-9: PHQ-9 Score PHQ-9: Total score 0 10/20/24 15:20 Thrive Assessment: Date of Thrive Assessment Date Thrive assessed 10/20/24 10/20/24 11:43 Coding Level of Care Code New Pt Level 4 (14183) Complex EM visit Add On G2211 Diagnoses Oral candidiasis B37.0 Assessment & Plan Assessment & Plan (1) Oral candidiasis: Code(s): B37.0 - Candidal stomatitis Plan: History of Present Illness The patient is a 69-year-old male presenting with concern for oral thrush. Symptoms began on Sunday morning with a whitish appearance in the oral cavity, which the patient associated with thrush after internet research. He experiences a mild burning sensation and dry mouth but denies other symptoms such as significant difficulty swallowing. He has no history of oral thrush and uses an inhaler for allergies infrequently; the last usage was more than a few weeks ago. The patient maintains oral hygiene by brushing and flossing regularly, and he has not noted any unusual odors from his mouth. 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 - Reports regular oral hygiene practices including twice-daily brushing and daily flossing. Review of Systems - Oral: Reports dry mouth, mild burning sensation. - Gastrointestinal: Denies significant difficulty swallowing. Physical Exam General: Cooperative and healthy appearing Nutritional Appearance: Well nourished Orientation/consciousness: Patient oriented x3 Limitations: No limitations Head: Normal to inspection General: Appearance normal, both eyes and all related structures Neck: Normal visual inspection Chest: Normal palpation of entire chest wall Respiratory: Normal respiratory effort Neurology: Patient oriented x3 Oral Cavity: tongue is fissured, mildly erythematous. Results Plan The patient is treated for oral candidiasis with clotrimazole troches four times daily for two weeks. Patient education included the administration of the troches. An EpiPen was prescribed for allergy management, particularly during upcoming travel. Semi-annual visits are deemed appropriate for the patient's ongoing care, with a potential wellness exam in December. The presentation, lack of complicating factors, and patient's understanding of treatment support this plan. Patient was informed and verbally consented to the use of an ambient scribe for clinic note documentation during this visit. Discussion Notes I explained to the patient that the current symptoms are consistent with oral candidiasis, likely linked to infrequent use of an inhaler or changes in oral linsey. We discussed the treatment plan using clotrimazole troches, emphasizing administration and potential mild side effects. I recommended maintaining good oral hygiene to prevent recurrence and highlighted the importance of rinsing the mouth after inhaler use. An EpiPen was prescribed for allergy management, especially considering travel plans. I advised on routine follow-up and the option to schedule a wellness check in December given changes in the practice environment and patient priorities. Patient Instructions - Take Mycelex (clotrimazole) troches four times daily; let it melt on the tongue. - Allow a few minutes post-administration before drinking water or other beverages. - Maintain good oral hygiene with regular brushing and flossing. - Rinse mouth after using an inhaler. - Use EpiPen as prescribed for allergic reactions during travel. - Schedule a wellness check in December for preventive care. - Follow up every six months unless symptoms worsen. Medications: New clotrimazole 10 mg mucous membrane TID 42 tabs 0RF
== END 2024-10-20 12:52 | disposition home or self-care (01) ==
LOC: HO.HMCHD 11:21
PROVIDERS: PCP Internal Medicine; Visit Provider Internal Medicine
DX: B37.0 Candidal stomatitis (principal)

== ENCOUNTER → 2024-10-20 11:21 | Outpatient (BNVA) | payer MEDICARE, OTHER, SELFPAY | PROVIDERS: PCP Internal Medicine; Visit Provider Internal Medicine | DX: B37.0 Candidal stomatitis (principal) | CPT/HCPCS: 99202 ==

== ENCOUNTER 2024-12-05 09:59 | Outpatient (AMB) | payer MEDICARE, OTHER, SELFPAY ==
--- NOTE | 2024-12-05 10:02 | MHC.PC.OV ---
Vital Signs 12/05/24 10:07 Height 5 ft 7 in Weight 68.039 kg BMI 23.5 BP 133/82 Respiration 16 Pulse 70 Pulse Source Pulse Oximeter Temp 97.6 F Temp Source Temporal Artery Scan Pulse Oximetry (%) 99 Oxygen Delivery Method Room Air Intake Visit Reasons: Thrush? [employer] Required: No Accompanied by: Self / Same As Patient Allergies Penicillins Allergy (Severe, Verified 12/05/24 10:02) hives Sulfa (Sulfonamide Antibiotics) Allergy (Severe, Verified 12/05/24 10:02) Hives Medication List - Last Reconciled 12/05/24 by MILTON Clinton albuterol sulfate 90 mcg/actuation inhalation apixaban (Eliquis) 2.5 mg PO BID atorvastatin 20 mg PO DAILY epinephrine (EpiPen) 0.3 mg (0.3 mL) IM .Q15 min PRN fluconazole Take 2 tabs today, then 1 tab daily to complete 10 days of treatment; tadalafil 20 mg PO tamsulosin 0.4 mg PO QPM Tobacco use date assessed: 12/05/24 Fall risk assessment: No Falls in past year Last assessed Fall Risk: 12/05/24 Dental Screening Dental Screen Date: 12/05/24 Did you have a dental visit in the last 12 months?: Yes Did you have a dental problem in the last 6 months where you did not have access to dental care?: No Was dental information given to patient?: Patient has dentist HPI HPI Comments History of Present Illness Details 69-year-old male with history of BPH and elevated PSA, hyperlipidemia, and history of bilateral PE following COVID-19 infection presents to the office today to establish care, routine follow-up, and evaluation of thrush. He states that since the end of September, he has had white spots on his tongue and tongue discomfort. Denies any sore throat or dysphagia. He has been prescribed clotrimazole which he used as prescribed with minimal improvement. He denies any unsafe prepped 6 practices and eats a healthy diet, stresses managed. No history of diabetes. No recent steroid therapy or antibiotics. He does wear a mouth guard at night and reports a cleanses nightly with a toothbrush and toothpaste in places and warm water during the day. He does use albuterol inhaler but has not used this in some time. No ICS. He does continue on Eliquis for history of bilateral PE and per Hematology at [facility], will remain on this indefinitely. No bleeding or easy bruisability. He is following with [facility] for management of his BPH as well as elevated PSA. He has undergone 2 prostate biopsies which have been negative. [facility] Medical History (Updated 12/05/24 @ 10:34 by MILTON Clinton) Chronic bronchitis BPH (benign prostatic hyperplasia) Elevated PSA Bilateral pulmonary embolism Hyperlipidemia Surgical History History of colonoscopy (~04/02/15) Family History Mother Cancer Father Blood clot in vein Social History Housing: Apartment Patient Tobacco Use Status: Never used Tobacco e-Cigarette/Vaping Use: Never Used service: No Current occupational status: retired Cognitive needs: No Hearing needs: No Vision needs: Yes (rx glasses) Questionnaire PHQ-9 Over the last 2 weeks, how often have you been bothered by any of the following problems? 1. Little interest or pleasure in doing things: not at all 2. Feeling down, depressed, or hopeless: not at all 3. Trouble falling or staying asleep, or sleeping too much: not at all 4. Feeling tired or having little energy: not at all 5. Poor appetite or overeating: not at all 6. Feeling bad about yourself - or that you are a failure or have let yourself or your family down: not at all 7. Trouble concentrating on things, such as reading the newspaper or watching television: not at all 8. Moving or speaking so slowly that other people could have noticed. Or the opposite - being so fidgety or restless that you have been moving around a lot more than usual: not at all 9. Thoughts that you would be better off or of hurting yourself in some way: not at all Total score: 0 Source: Developed by Drs. Foreign Moffett, Belia Tapia, Bhavesh Ty and colleagues, with an educational jean from [employer]. Thrive Questionnaire Date Thrive assessed: 12/05/24 I am a: Patient What is your living situation today?: I have a steady place to live Within the past 12 months, did the food you bought not last and you didn't have the money to get more?: Never true Within the past 12 months, did you worry whether your food would run out before you got money to buy more?: Never true Do you have trouble paying for medicines?: No Do you have trouble getting transportation to medical appointments?: No Do you have trouble paying your heating and electricity bill?: No Do you have trouble taking care of your child, family member or friend?: No Do you have trouble with day-to-day activities such as bathing, preparing meals, shopping, managing finances, etc.?: No Are you currently unemployed and looking for a job?: No Are you interested in more education?: No Please select the resources that you would like help with: None THRIVE Score: 0 AUDIT C Alcohol Use Questionnaire (AUDIT-C) 1. How often do you have a drink containing alcohol?: 4 or more times a week Total Score: 4 LA-7 AMB Questionnaire LA-7 Date LA - 7 assessed: 12/05/24 Feeling nervous, anxious, or on edge: 0 = Not at all Not being able to stop or control worryin = Not at all Worrying too much about different things: 0 = Not at all Trouble relaxin = Not at all Being so restless that it is hard to sit still: 0 = Not at all Becoming easily annoyed or irritable: 0 = Not at all Feeling afraid as if something awful might happen: 0 = Not at all Total LA-7 score (0-4 normal; 5-9 mild; 10-14 moderate; 15-21 severe): 0 Source: Developed by Drs. Foreign Moffett, Belia Tapia, Bhavesh Ty and colleagues, with an educational jean from [employer]. Review of Systems Const All systems reviewed & are unremarkable except as noted in HPI and below Physical exam (Primary Care) Vital Signs: Last Vital Signs Temp 97.6 F 12/05/24 10:07 Pulse 70 12/05/24 10:07 Resp 16 12/05/24 10:07 BP 133/82 12/05/24 10:07 Pulse Ox 99 12/05/24 10:07 Oxygen Delivery Method Room Air 12/05/24 10:07 BMI result Body Mass Index 23.5 Tobacco/Smoking Status: Tobacco use Status Tobacco use date assessed 12/05/24 12/05/24 10:11 Patient Tobacco Use Status Never used Tobacco 12/05/24 10:11 e-Cigarette/Vaping Use Never Used 12/05/24 10:11 PHQ-9: PHQ-9 Score PHQ-9: Total score 0 12/05/24 10:11 Thrive Assessment: Date of Thrive Assessment Date Thrive assessed 12/05/24 12/05/24 10:11 Const Other: Constitutional - Awake and Alert, No apparent distress Eyes - PERRLA, EOMI Mouth - Mucosa and posterior oropharynx normal. Tongue with white patches Cardiovascular - S1S2, RRR, No edema Respiratory - Normal lung expansion, Normal respiratory effort, No respiratory distress, CTA bilaterally Extremities - no calf tenderness bilaterally, no swelling Skin - Warm/Dry Neurological - Alert & oriented x3 Psychological - Appropriate affect Coding Level of Care Code New Pt Level 4 (33948) Complex EM visit Add On G2211 Diagnoses Oropharyngeal candidiasis B37.0 Bilateral pulmonary embolism I26.99 Hyperlipidemia E78.5 Elevated PSA R97.20 BPH (benign prostatic hyperplasia) N40.0 Chronic bronchitis J42 Assessment & Plan Assessment & Plan (1) Oropharyngeal candidiasis: Code(s): B37.0 - Candidal stomatitis Category: Medical Plan: Minimal improvement with topical clotrimazole. Unclear etiology- no risk factors. Fluconazole 200mg today, then 100mg to complete course of 10 days of therapy. Counseled on side effects. Liver panel ordered to be completed following completion of treatment. Consider Infectious Disease referral if symptoms still persist. (2) Bilateral pulmonary embolism: Comment: following COVID 19 infection. On eliquis indefinitely per hematology at [facility] Code(s): I26.99 - Other pulmonary embolism without acute cor pulmonale Category: Medical Plan: Stable. Continue Eliquis 2.5 mg twice daily which will be continued indefinitely per Hematology at [facility]. (3) Hyperlipidemia: Code(s): E78.5 - Hyperlipidemia, unspecified Category: Medical Plan: Lipid panel ordered. Continue atorvastatin 20 mg daily. Low-fat diet. (4) Elevated PSA: Code(s): R97.20 - Elevated prostate specific antigen [PSA] Category: Medical Plan: S/p prostate biopsy x2 with negative pathology. Continue following with [facility] as scheduled (5) BPH (benign prostatic hyperplasia): Code(s): N40.0 - Benign prostatic hyperplasia without lower urinary tract symptoms Category: Medical Plan: Stable. Continue tamsulosin and tadalafil. Continue following with urology as scheduled. (6) Chronic bronchitis: Code(s): J42 - Unspecified chronic bronchitis Category: Medical Plan: Stable. Use albuterol only as needed for shortness of breath and wheezing. Plan Fluconazole prescribed for persistent thrush. Labs to be completed following completion of therapies. Follow-up as scheduled for physical exam. Orders: Orders Basic Metabolic Panel Today E78.5 - Hyperlipidemia, unspecified, Z13.1 - Encounter for screening for diabetes mellitus Hemoglobin A1c Today E78.5 - Hyperlipidemia, unspecified, Z13.1 - Encounter for screening for diabetes mellitus Complete Blood Count Auto Diff Today E78.5 - Hyperlipidemia, unspecified, Z13.1 - Encounter for screening for diabetes mellitus Lipid Panel Today E78.5 - Hyperlipidemia, unspecified, Z13.1 - Encounter for screening for diabetes mellitus Medications: New fluconazole Take 2 tabs today, then 1 tab daily to complete 10 days of treatment; 11 tabs 0RF
[2024-12-05 10:07] VITALS: BP 133/82; PULSE 70; RESP 16; TEMP 36.4; O2SAT 99; BMI 23.5
--- OUTSIDE RECORDS SUMMARY | 2024-12-05 10:31 | XMS_ITS | Data Portability ---
Author Organization [place] - [facility] [place], [facility] Address [address] [place] [address] Care Team Providers Care Billing Machine Operator Name Role Phone GENESIS WELCH Primary Care Provider [phone] Assessment Encounter Date Assessment Date Assessment LastModified by Organization Details LastModified Time 04/26/2020 04/26/2020 DIAGNOSTIC IMAGING: Radiographs are reviewed. Multiple views of the right knee obtained. He has a cemented posterior sacrificing implant in good position. No evidence of loosening. No fractures. IMPRESSION: Recurrent hemarthrosis right total knee. PLAN: Overall I think the patient is recovering well. I do not equate this swelling to continuation of his problem but rather standard or expected postoperative swelling. I would back off on his home exercise program, as his motion is good. He can ambulate with the cane, but can discontinue the cane as he tolerates. We will not have him do formal physical therapy at this time. He should continue to ice and elevate. Plan will be to return to the office in approximately 2 months? time for repeat evaluation. He can call or come in sooner if he has any issues. He is satisfied with this plan. He was provided today with a copy of his operative note. All questions are answered. The patient did complete the COVID-19 screening handout and was deemed healthy to move forward with this appointment. This visit is a rmsu-wv-cflv visit during the COVID-19 pandemic Public Health Emergency. Based on my clinical judgment, I felt that this visit could not be provided safely and appropriately via TeleHealth. Based on available information prior to presentation, the patient had a high risk of significant worsening and potential functional impairment affecting ADLs if the visit was not completed today. The patient was seen in the office after following PPE use, Workforce Safety, Patient Safety and Infection Control protocols for all services provided today in accordance with DP and CDC guidelines. There was additional practice expense incurred due to the Public Health Emergency. This additional expense includes but is not limited to: ? Additional clinical staff and medical principal technical architect time for pre-screening ? Time spent reviewing COVID social distancing guidelines, precautions, instructions, and signage ? Patient symptom checking upon arrival ? Application, removal, and purchasing of additional PPE ? Additional cleaning of exam room, equipment, supplies, as well as cleaning supplies for that purpose. Not available 04/29/2020 13:11:13 06/14/2020 06/14/2020 DIAGNOSTIC IMAGING: Radiographs reviewed. Hardware is in good position. No change. IMPRESSION: Recurrent hemarthrosis status post revision surgery. PLAN: I reviewed with the patient. I do think he is doing well. He remains without recurrent hemarthrosis. He is cautiously optimistic. I do think he can return to some of his activities. We will gradually work these up. Plan will be to see me in additional 3 months? time. If he has any issues or concerns, he can call or come in sooner. He is satisfied with this plan. All questions are answered. The patient did complete the COVID-19 screening handout and was deemed healthy to move forward with this appointment. This visit is a hqmz-wo-afwi visit during the COVID-19 pandemic Public Health Emergency. Based on my clinical judgment, I felt that this visit could not be provided safely and appropriately via TeleHealth. Based on available information prior to presentation, the patient had a high risk of significant worsening and potential functional impairment affecting ADLs if the visit was not completed today. The patient was seen in the office after following PPE use, Workforce Safety, Patient Safety and Infection Control protocols for all services provided today in accordance with DP and CDC guidelines. There was additional practice expense incurred due to the Public Health Emergency. This additional expense includes but is not limited to: ? Additional clinical staff and medical principal technical architect time for pre-screening ? Time spent reviewing COVID social distancing guidelines, precautions, instructions, and signage ? Patient symptom checking upon arrival ? Application, removal, and purchasing of additional PPE ? Additional cleaning of exam room, equipment, supplies, as well as cleaning supplies for that purpose. Not available 06/15/2020 21:03:39 09/20/2020 09/20/2020 DIAGNOSTIC IMAGING: Radiographs reviewed. Hardware is in good position. No evidence of loosening. No fracture. IMPRESSION: Recurrent hematoma right total knee status post debridement and cauterization. PLAN: I reviewed with the patient. He is doing well. I am happy that he has made progress. I think his recovery is relatively normal secondary to revision knee surgery. I am happy to hear that he has not had episodes of recurrent hematoma. I think he can return to some resistance on the spin bike. I also think he can bike outside once the weather improves. Plan will be to return at one year. He can call or come in sooner if he has any issues or concerns. All questions are answered today. The patient did complete the COVID-19 screening handout and was deemed healthy to move forward with this appointment. This visit is a wwuq-rd-fslz visit during the COVID-19 pandemic Public Health Emergency. Based on my clinical judgment, I felt that this visit could not be provided safely and appropriately via TeleHealth. Based on available information prior to presentation, the patient had a high risk of significant worsening and potential functional impairment affecting ADLs if the visit was not completed today. The patient was seen in the office after following PPE use, Workforce Safety, Patient Safety and Infection Control protocols for all services provided today in accordance with [facility] and CDC guidelines. There was additional practice expense incurred due to the Public Health Emergency. This additional expense includes but is not limited to: ? Additional clinical staff and medical principal technical architect time for pre-screening ? Time spent reviewing COVID social distancing guidelines, precautions, instructions, and signage ? Patient symptom checking upon arrival ? Application, removal, and purchasing of additional PPE ? Additional cleaning of exam room, equipment, supplies, as well as cleaning supplies for that purpose. Not available 09/22/2020 10:54:15 07/04/2021 07/04/2021 DIAGNOSTIC IMAGING: Radiographs reviewed. Cemented posterior sacrificing total knee arthroplasty in good position. No evidence of loosening. Alignment is appropriate. IMPRESSION: Status post debridement and cauterization for recurrent hematoma right total knee. PLAN: I reviewed with the patient. Overall he is doing well. We discussed routine care. He would like to ski on the beginners? slopes with his grandchildren. I think this is reasonable, as he has been biking without issues at this point. His plan is to return to see me some time in the summertime next year. We will check both knees at that time, that is 4 views of both knees. Of course if he has any issues, questions or concerns from now until then, he can contact the office. I did send him a prescription today for antibiotics for dental work. All questions are answered. He is satisfied with the plan. The patient did complete the COVID-19 screening handout and was deemed healthy to move forward with this appointment. This visit is a saso-pv-gspd visit during the COVID-19 pandemic Public Health Emergency. Based on my clinical judgment, I felt that this visit could not be provided safely and appropriately via TeleHealth. Based on available information prior to presentation, the patient had a high risk of significant worsening and potential functional impairment affecting ADLs if the visit was not completed today. The patient was seen in the office after following PPE use, Workforce Safety, Patient Safety and Infection Control protocols for all services provided today in accordance with [facility] and CDC guidelines. There was additional practice expense incurred due to the Public Health Emergency. This additional expense includes but is not limited to: ? Additional clinical staff and medical principal technical architect time for pre-screening ? Time spent reviewing COVID social distancing guidelines, precautions, instructions, and signage ? Patient symptom checking upon arrival ? Application, removal, and purchasing of additional PPE ? Additional cleaning of exam room, equipment, supplies, as well as cleaning supplies for that purpose. Not available 07/06/2021 20:39:00 05/22/2022 05/22/2022 Imaging: Radiographs obtained in the office on 05/22/2022 including AP standing/PA flexion of the bilateral knees and 2 additional views of the right knee demonstrate well-seated right knee prostheses bilaterally without evidence of fracture or lucency. Assessment: Status post right TKA I&D and liner exchange on 03/25/2020 overall doing extremely well without recurrent hematoma. Plan: The findings were reviewed with the patient, he was seen and examined by Dr. Paiz. Discussed that he is overall doing extremely well. He can continue with all activities as tolerated without restriction. He will contact our office if questions or concerns arise. All questions were answered. Sofía Alva PA-C dictating for Dr. Higinio Paiz. [id number] Not available 05/22/2022 17:17:03 Plan of Treatment Reminders Order Date Submit Date Provider Last Modified By Organization Details Last Modified Time Details Appointments None recorded. Lab None recorded. Referral None recorded. Procedures None recorded. Surgeries None recorded. Imaging None recorded. Medication Orders amoxicillin 500 mg tablet 2020 021 [facility][id number], [phone] [place], [address], 01:05:23 Patient TargetsNo targets recorded. Patient InstructionsNo instructions recorded. Reason for Referral None Reported. Results Created Date Observation Date Name Description Value Unit Range Abnormal Flag Note LastModifiedBy Organization Detail LastModifiedTime 04/26/20 20 04/26/2020 XR, bone lengt h, hip to ankle http:/ [email or web address]/opa lweb/I ntegra tionPr ocesso r.aspx ?CMD=O PENSTU DY&ACC ESSION =76[id number] [place] [address] & Shoulder [address], [address], 04/26/2020 13:15:30 06/14/20 20 06/14/2020 XR, bone lengt h, hip to ankle http:/ /[email or web address] 44/opa lweb/I ntegra tionPr ocesso r.aspx ?CMD=O PENSTU DY&ACC ESSION =88503 [id number] [place] [address] & Shoulder [address], [address], 06/14/2020 12:44:50 09/20/19 21 09/20/2020 XR, knee http:/ /[email or web address] 44/opa lweb/I ntegra tionPr ocesso r.aspx ?CMD=O PENSTU DY&ACC ESSION =91665 [id number] [place] [address], [address], 09/20/2020 13:00:34 07/04/20 21 07/04/2021 XR, knee http:/ /[email or web address] 44/opa lweb/I ntegra tionPr ocesso r.aspx ?CMD=O PENSTU DY&ACC ESSION =04527 [id number] [place] [address], [address], 07/04/2021 15:03:56 Result Notes None recorded. Procedures Surgical History Date Name Laterality Status Provider Name and Address Organization Details Recorded Time 03/25/20 20 Orthopaedic Surgery completed Fifiritesh Fountain [facility] 04/26/2020 09:50:06 03/11/20 19 total knee replacement completed Fifi Fountain [facility] 10/21/2019 14:39:39 12/29/19 09 [facility]/21/2019 14:43:33 Imaging Results Imaging Date Name Status LastModified by [facility] Details LastModified Time 04/26/2020 XR, bone length, hip to ankle completed [address] [place] [address], [address], 04/26/2020 13:15:30 06/14/2020 XR, bone length, hip to ankle completed [address] [place] [address], [address], 06/14/2020 12:44:50 09/20/2020 XR, knee completed [address] [place] [address], [address], 09/20/2020 13:00:34 07/04/2021 XR, knee completed [email or web address] [facility] [address] [place] [address], [place], [address], 07/04/2021 15:03:56 Procedure Notes None recorded. Medical Equipment None Reported. Allergies Allergen ID Allergen Name Allergen Category Reaction Reaction Severity Criticality Documentation Date Start Date Code Code System Note Provider Name and Address Organization Details Recorded Time 974027 Product containin g penicilli n (product) medicatio n hives Not available Not available 10/21/2019 86247 8001 [facility] Fifi C[facility] 0 14:39:01 091675 Substance with sulfonami de structure and antibacte rial mechanism of action (substanc e) medicatio n hives Not available Not available 10/21/2019 28865 8003 [facility] 0 14:39:16 Medications Name Sig Start Date Stop Date Status Note LastModified by Organization Details LastModified Time amoxicillin 500 mg capsule TAKE 4 CAPSULES BY ORAL ROUTE 1 HOUR PRIOR TO DENTAL PROCEDURE active Not Available Not Available No t Available clotrimazol e 10 mg zonia TAKE 1 ZONIA TO AFFECTED MUCOSAL AREA 3 TIMES A DAY active Not Available Not Available No t Available gabapentin 600 mg tablet 03/15 completed Not Available Not Available Not Available doxycycline hyclate 100 mg capsule 03/15 completed Not Available Not Available Not Available atorvastati n 20 mg tablet TAKE 1 TABLET BY MOUTH EVERY DAY active Not Available Not Available No t Available clindamycin HCl 300 mg capsule TAKE 2 CAPSULES BY MOUTH 1HR PRIOR TO PROCEDURE AND THEN TAKE 1 CAP EVERY 6 HOURS AFTER PROCEDURE 07/03 completed Not Available Not Available Not Available azithromyci n 250 mg tablet TAKE 2 TABLETS BY MOUTH TODAY, THEN TAKE 1 TABLET DAILY FOR 4 DAYS 07/03 completed Not Available Not Available Not Available meloxicam 15 mg tablet 03/15 completed Not Available Not Available Not Available prednisone 20 mg tablet TAKE 1 TABLET BY MOUTH EVERY DAY 07/03 completed Not Available Not Available Not Available fluorouraci l 5 % topical cream 03/15 completed Not Available Not Available Not Available ciprofloxac in 500 mg tablet TAKE 1 TAB 1 HR BEFORE PROCEDURE & 1 TAB 10 HRS AFTER active Not Available Not Available No t Available aspirin 81 mg tablet,олег yed release Take 1 tablet every day by oral route. 06/14 completed Not Available Not Available Not Available tramadol 50 mg tablet TAKE 1 TABLET BY MOUTH EVERY 6 HOURS. TAKE WITH ACETAMINO PHEN 500 MG 04/26 completed Not Available Not Available Not Available amoxicillin 500 mg tablet Take 4 tablets by oral route 1 hour prior to dental procedure 2024 active Not Available Not Available Not Avai lable ketorolac 10 mg tablet 07/03 completed Not Available Not Available Not Available meloxicam 7.5 mg tablet 03/15 completed Not Available Not Available Not Available hydromorpho ne 2 mg tablet 03/15 completed Not Available Not Available Not Available warfarin 6 mg tablet 03/15 completed Not Available Not Available Not Available tamsulosin 0.4 mg capsule TAKE 1 CAPSULE BY MOUTH EVERY EVENING active Not Available Not Available No t Available doxycycline monohydrate 100 mg capsule 07/03 completed Not Available Not Available Not Available pantoprazol e 40 mg tablet,олег yed release TAKE 1 TABLET BY MOUTH EVERY DAY 07/03 completed Not Available Not Available Not Available betamethaso ne dipropionat e 0.05 % topical cream PLEASE SEE ATTACHED FOR DETAILED DIRECTION S active Not Available Not Available No t Available gabapentin 300 mg capsule 03/15 completed Not Available Not Available Not Available montelukast 10 mg tablet TAKE 1 TABLET BY MOUTH EVERY DAY active Not Available Not Available No t Available codeine 10 mg-guaifene sin 100 mg/5 mL oral liquid TAKE 5 ML BY MOUTH 4 TIMES A DAY NEEDED 06/14 completed Not Available Not Available Not Available mupirocin 2 % topical ointment 03/15 completed Not Available Not Available Not Available zolpidem 5 mg tablet 03/15 completed Not Available Not Available Not Available epinephrine 0.3 mg/0.3 mL injection, auto-inject or INJECT 1 PEN INTRAMUSC ULARLY EVERY 15 MIN NEEDED FOR ANAPHYLAX IS active Not Available Not Available No t Available albuterol sulfate HFA 90 mcg/actuati on aerosol inhaler INHALE 2 PUFFS USING INHALER FOUR TIMES A DAY NEEDED active Not Available Not Available No t Available morphine 15 mg immediate release tablet 07/03 completed Not Available Not Available Not Available oxycodone 5 mg tablet TAKE 1 TABLET BY MOUTH EVERY 4 HOURS NEEDED active Not Available Not Available No t Available Senna Plus 8.6 mg-50 mg tablet TAKE 2 TABS BY MOUTH DAILY AT BEDTIME WHILE USING NARCOTICS , MAY STOP WHEN DONE WITH OXYCODONE 03/15 completed Not Available Not Available Not Available tadalafil 20 mg tablet TAKE 1 TABLET BY MOUTH 45-60 MINUTES BEFORE INTERCOUR SE. active Not Available Not Available No t Available Pain Relief Extra Strength (acetaminop hen) 500 mg tablet TAKE 2 TABLETS BY MOUTH THREE TIMES A DAY 03/15 completed Not Available Not Available Not Available Flomax active Not Available Not Availa ble Not Available Clindamycin for dental appts 07/03 completed Not Available Not Available Not Available tranexamic acid 650 mg tablet 03/15 completed Not Available Not Available Not Available Xarelto 10 mg tablet 03/15 completed Not Available Not Available Not Available Eliquis 5 mg tablet TAKE 1 TABLET BY MOUTH TWICE A DAY 05/22 completed Not Available Not Available Not Available Eliquis 2.5 mg tablet TAKE 1 TABLET BY MOUTH TWICE A DAY active Not Available Not Available No t Available Eliquis DVT-PE Treatment 30-Day Starter 5 mg (74 tablets) in dose pack TAKE 2 TABLETS BY MOUTH TWO TIMES A DAY FOR 7 DAYS, THEN 1 TABLET TWO TIMES A DAY THEREAFTE R 07/03 completed Not Available Not Available Not Available Paxlovid 300 mg (150 mg x 2)-100 mg tablets in a dose pack TAKE 3 TABLETS BY MOUTH TWICE A DAY FOR 5 DAYS active Not Available Not Available No t Available Vitals Date Recorded Body height Body mass index (BMI) Body weight Provider Name and Address Organization Details Last Updated DateTime 09/20/2020 172.72 cm 22.5 kg/m2 75675.67 g Maximilian Bazzi [facility] 09/20/2020 12:42:48 Date Recorded Body height Body mass index (BMI) Body weight Provider Name and Address Organization Details Last Updated DateTime 07/04/2021 172.72 cm 22.8 kg/m2 54210.86 g Fifi Fountain [facility] 07/04/2021 14:36:30 Date Recorded Body height Body mass index (BMI) Body weight Provider Name and Address Organization Details Last Updated DateTime 05/22/2022 170.18 cm 23.2 kg/m2 15233.67 g Ivone Espino [facility] 05/22/2022 15:20:52 Date Recorded Body height Body mass index (BMI) Body weight Provider Name and Address Organization Details Last Updated DateTime 04/26/2020 172.72 cm 22.8 kg/m2 05021.86 g Fifi Fountain [facility] 04/26/2020 12:33:53 Date Recorded Body height Body mass index (BMI) Body weight Provider Name and Address Organization Details Last Updated DateTime 06/14/2020 172.72 cm 22.5 kg/m2 58723.67 g HIGINIO PAIZ MD [address] [place] [address], [id number] [place] [address] [facility] 06/14/2020 12:24:00 Social History Question Answer Notes LastModified by Organizat ion Details LastModified Time Tobacco Smoking Status Never Smoker Fifi Fountain [facility] 10/21/2019 14:40:04 What Is Your Level Of Alcohol Consumption? Occasional Information not available 10/21/2019 Auto Related Injury? No Information not available 07/04/2021 What Is Your Level Of Caffeine Consumption? None Information not available 03/15/2020 If Patient Spent Time In [facility] - Does The [facility] Live In [facility]? No Information not available 07/04/2021 In The 14 Days Before Symptom Onset, Did The Patient Spend Time In [facility]? No Information not available 07/04/2021 Have You Been To An Area Known To Be High Risk For COVID-19? No Information not available 07/04/2021 Are You Currently Employed? No [email or web address] Information not available 05/22/2022 Do You Or Have You Ever Used E-cigarettes Or Vape? Never Used Electronic Cigarettes Information not available 10/21/2019 What Is Your Occupation? Retired--06/16 Information not available 03/15/2020 Have You Had Cortisone? Yes Information not available 07/04/2021 Do You Or Have You Ever Used Smokeless Tobacco? Never Used Smokeless Tobacco Information not available 03/15/2020 How Much Tobacco Do You Smoke? No Information not available 07/04/2021 What Types Of Sporting Activities Do You Participate In? Biking, Hiking, Skiing Information not available 03/15/2020 How Many Years Have You Smoked Tobacco? 0 Information not available 07/04/2021 Work Related Injury? No Information not available 07/04/2021 Sex: Unknown Functional Status Question Answer Note LastModified by Organization D etails LastModified Time What is your exercise level? Moderate [email or web address] Information not available 06/14/2020 Mental Status None recorded. Family History Relationship Description Onset Age of this Age Resolved Age Notes LastModified by Organization Details LastModified Time Maternal Grandmother Family history of malignant neoplasm [email or web address] Not available 09/28 14:44:25 Mother Family history of malignant neoplasm edi Not available 09/28 14:44:25 Medical History Condition Response Blood Clots / Phlebitis Y HIV or AIDS N Heart Problems N High Blood Pressure N Depression or Anxiety N Irregular Heartbeat Y MRSA N Emphysema / Chronic Bronchitis N Any Other Significant Medical Issues N Reaction to General/Local Anesthesia N Hepatitis / Jaundice N Weight Gain / Loss N Kidney / Bladder Infections N Diabetes N Bleeding Disorder Y Hearing Loss N Angina, Heart Failure or Attack N Night Sweats N Seizures / Epilepsy N Osteoarthritis / Rheumatoid arthritis / Other Y Cancer N Stroke N Chemical Dependency / Alcoholism N Ulcer / Stomach Bleeding / Indigestion N Visual Loss or Glaucoma N Psoriasis / Skin Rash N Thyroid Disorder N Heart Disease N Asthma / Shortness of Breath / Sleep Tuber Machine Cutter ea (please specify) Y Pulmonary Embolism Y Immunizations Vaccine Type Date Status Note Provider Nam e and Address Organization Details Recorded Time COVID-19, mRNA, LNP-S, PF, 30 mcg/0.3 mL dose 1 completed Fifi gonzalez [place] [facility] 07/04/2021 14:37:39 COVID-19, mRNA, LNP-S, PF, 30 mcg/0.3 mL dose 1 completed Fifi gonzalez [place] [facility] 07/04/2021 14:37:44 COVID-19, mRNA, LNP-S, PF, 30 mcg/0.3 mL dose 1 completed Fifi Александр gonzalez [facility] 07/04/2021 14:37:49 Influenza, split virus, quadrivalent, preservative 0 completed HIGINIO PAIZ MD [address] [place] [address], [phone] 06/14/2020 12:25:11 Past Encounters Encounter ID Performer Location Encounter Start Date Encounter Closed Date Diagnosis/Indication Diagnosis SNOMED-CT Code Diagnosis ICD10 Code Diagnosis Note [id number] HIGINIO PAIZ MD [address] [phone] 10/22/2019 10:26:14 10/22/2019 14:46:01 Hemarthrosis of right knee [id number] 96133 M25.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 Patient will be in contact with the office. Please see dictation for additional details. [id number] HIGINIO PAIZ MD [facility] Office [address] [place] [phone] 03/15/2020 15:07:22 03/15/2020 16:20:58 Hemarthrosis of right knee [id number] M25.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 Patient will be in contact with the office. Please see dictation for additional details. [id number] HIGINIO PAIZ MD [facility] Office [address] [place] [address] [phone] 1 04/26/2020 12:10:54 04/26/2020 13:17:35 Hemarthrosis of right knee [id number] M25.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 Patient will be in contact with the office. Please see dictation for additional details. [id number] HIGINIO PAIZ MD [facility] Office [address] [place] [address] [phone] 1 06/14/2020 11:55:33 06/14/2020 12:58:47 Recurrent hematuria [id number] N02.9 [id number] HIGINIO PAIZ MD [place] [phone] 09/20/2020 12:19:30 09/20/2020 13:26:51 [id number] HIGINIO PAIZ MD [facility] Office [address] [place] [address] [phone] 1 07/04/2021 13:51:13 07/04/2021 15:18:03 Hematoma of lower leg [id number] S80.11XD recurrent, right TKR, resolved [id number] HIGINIO PAIZ MD [facility] Office [address] [place] [address] [phone] 1 05/22/2022 13:45:33 05/22/2022 16:07:44 Hematoma of right knee region [id number] S80.01XD Health Concerns Section Related Observation LastModified by Organization Detai ls LastModified Time None Recorded Concern Status LastModified by Organization Details LastModified Time None Recorded Advance Directives Directive None Recorded Payers Insurance Date Sequence Insurance Name Policy Number Policy Gee Covered Member ID Gee Member ID Guarantor Name 05/17/2022 [employer] - SPECIALITY CLAIMS (MEDICARE DME REGION A) Malik Wylie [id number] Malik Wylie 05/15/2022 1 [place]: [employer] Malik Wylie [id number] Malik Wylie 07/11/2021 2 [facility] [id number] Malik Wylie [id number] Malik Wylie 05/19/2022 2 [facility] - PLAN 1 (MEDICARE SUPPLEMENT) [id number] Malik Wylie [id number] Malik Wylie 07/11/2021 2 [facility] [id number] Malik Wylie [id number] Malik Wylie Notes Date Note Type Note Provider Name and Address Organization Details Recorded Time 04/26/2020 text/html CHIEF COMPLAINT: Status post open debridement secondary to recurrent hemarthrosis right knee. HISTORY OF PRESENT ILLNESS: Kulwant returns for first follow-up. He is approximately 4? ? ? weeks out from open debridement and liner exchange secondary to recurrent hemarthrosis. He underwent synovectomy cauterization of the capsule, as well as plugging a hole within the femur, likely the distal femoral guide. He continues to have swelling. This concerns him. When he does have the swelling, he has pain. He does not have pain today. His knee remains swollen. The swelling itself doesn? t go down necessarily, but it does go up with regard to pain. He is icing. He is elevating. He is not taking narcotic pain medication. He has completed home therapy. He is using a cane. He is not driving. He is considering transitioning to outpatient therapy but has not started this yet. REVIEW OF SYSTEMS: As per HPI. No fevers or chills. No cough or shortness of breath. No chest pain or palpitations. HIGINIO PAIZ MD [address] [place] [address], [phone], [facility] 04/29/2020 20:11:17 06/14/2020 text/html CHIEF COMPLAINT: Status post right knee revision. HISTORY OF PRESENT ILLNESS: Kulwant returns for his second follow-up. He is having recurrent hemarthrosis of the right knee. These were painful and affecting his activities of daily living. He notes he is quite active and is unable to do these things secondary to this. He underwent liner exchange and extensive debridement. He is now 2? ? ? months out. He has had a lot of swelling immediately following surgery, but this has slowly and gradually decreased. His pain is doing better. His swelling is doing better. He has not had any recurrent episodes of swelling. He is walking unassisted. He is doing exercise and returning to exercise slowly. He has completed the physical therapy, but he is doing home exercises. He is riding a bike but not for long periods, maybe 5 minutes a day twice a day. His pain is well controlled. He is not using pain medication. Incision is closed. He has no redness or drainage. He has no fevers or chills. REVIEW OF SYSTEMS: As per HPI. Additionally, COVID-19 screening form completed. He did have a positive COVID test over a month ago at this point. He has been asymptomatic for at least the last 2 weeks. HIGINIO PAIZ MD [address] [place] [address], [phone], [facility] 06/20/2020 20:21:41 09/20/2020 text/html CHIEF COMPLAINT: Status post revision knee secondary to recurrent hematoma. HISTORY OF PRESENT ILLNESS: Patient returns today 6 months out from irrigation and debridement and revision of his right knee. He has not had any of the severe hematoma events. He has been cautious s with his recovery. He has returned to activities. He is doing some quad strengthening exercises. He is doing a stationary bike on low resistance. He has had no issues with the wound. He is walking unassisted. He is not limping. He is outside more. He gets an occasional small amount of swelling over the course of the day. This improves with elevation. He is not icing that much. He is optimistic but is looking forward to the springtime to get outside and on his bike. REVIEW OF SYSTEMS: As per HPI. COVID-19 screening completed and negative. HIGINIO PAIZ MD [address] [place] [address], [phone], [facility] 09/28/2020 00:18:32 07/04/2021 text/html CHIEF COMPLAINT: Status post irrigation debridement exploration for return hematoma right knee.HISTORY OF PRESENT ILLNESS: Patient presents for planned follow-up. He is actually doing very well. He is happy. He has not had any episodes of recurrent hematoma in over a year. He is biking. 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 His pain is well controlled. He in fact does not have pain. He is happy with his progress. He has no issues with the wound. There is no redness or drainage. He has no swelling. He has some questions about what he should be doing in terms of activity level. Otherwise, he has no questions today.REVIEW OF SYSTEMS: As per HPI. Otherwise, negative. HIGINIO PAIZ MD [address] [place] [address], [phone], [facility] 07/15/2021 11:32:58 05/22/2022 text/html Malik presents today for a 2-year follow-up status post right TKA I&D and liner exchange on 03/25/2020. He reports that he is overall done extremely well. He has had no recurrent episodes of swelling or hemarthrosis. He is able to get back to all of his usual activities without limitations. He is very pleased with his progress. HIGINIO PAIZ MD [address] [place] [address], [phone], [facility] 06/05/2022 09:28:20
--- OUTSIDE RECORDS SUMMARY | 2024-12-05 10:31 | XMS_ITS | Clinical Summary ---
Author Organization [address] [facility] Address [address] [place] [address] Phone Care Team Providers Care Cash Processor Name Role Phone Unavailable Primary Care Provider Unavailabl e Social History Tobacco Use Types Packs/Day Years Used Date Smoking Tobacco: Never Assessed Sex and Gender Information Value Date Recorded Sex Assigned at Not on file Legal Sex Male 1:48 PM EST Gender Identity Not on file Sexual Orientation Not on file Plan of Treatment Health Maintenance Due Date Last Done Comments DTaP,Tdap,and Td Vaccines (1 - Tdap) 1974 Pneumococcal Vaccine: 50+ Ye ars (1 of 1 - PCV) 01/07/2004 Zoster Vaccines (1 of 2) 01/07/2004 COVID-19 Vaccine ( - 2023-2 5 season) 2024 Abdominal Aortic Aneurysm (A AA) Screen 06/11/2024 Cholesterol Screening (Lipid Panel) 06/11/2024 Colorectal Cancer Screening: Colonoscopy 06/11/2024 Depression Screening 06/11/2024 Falls Risk Assessment 06/11/2024 Hepatitis C Screening 06/11/2024 Medicare Annual Wellness Visit 06/11/2024 Social Influencers of Health Screening 06/11/2024 Influenza Vaccine (Season Ended) 2025 RSV Immunization Adult Patie nts (1 - 1-dose 75+ series) 2029 HIB Vaccines Aged Out No longer eligi ble based on patient's age to complete this topic HPV Vaccines Aged Out No longer eligi ble based on patient's age to complete this topic Hepatitis A Vaccines Aged Out No long er eligible based on patient's age to complete this topic Hepatitis B Vaccines Aged Out No long er eligible based on patient's age to complete this topic IPV Vaccines Aged Out No longer eligi ble based on patient's age to complete this topic MMR Vaccines Aged Out No longer eligi ble based on patient's age to complete this topic Meningococcal ACWY Vaccine Aged Out N o longer eligible based on patient's age to complete this topic Meningococcal B Vaccine Aged Out No l onger eligible based on patient's age to complete this topic RSV Immunization Patients Un galindo 20 months Aged Out No longer eligible b ased on patient's age to complete this topic Varicella Vaccines Aged Out No longer eligible based on patient's age to complete this topic Insurance MEDICARE [facility]
--- OUTSIDE RECORDS SUMMARY | 2024-12-05 10:31 | XMS_ITS | Encounter Summary ---
Author Organization [facility] Address [address] [place] [address] Care Team Providers Care Chucker Name Role Phone Unavailable Primary Care Provider Unavailabl e Encounter Details Date Type Department Care Team (Late st Contact Info) Description 06/11/2024 Lab Requisition [facility] [address] [facility] [place] [address] Tristin Rodriguez MD [address] [place] [address] Elevated prostate specific antigen (PSA) Social History Tobacco Use Types Packs/Day Years Used Date Smoking Tobacco: Never Assessed Sex and Gender Information Value Date Recorded Sex Assigned at Not on file Legal Sex Male 1:48 PM EST Gender Identity Not on file Sexual Orientation Not on file documented as of this encounter Plan of Treatment Not on file documented as of this encounter Procedures Procedure Name Priority Date/Time Associated Diagnosis Comments AP OUTSIDE CONSULT Routine 06/09/2024 Elevated prostate specific antigen (PSA) documented in this encounter Results * Anatomic pathology outside consult (06/09/2024) Final Diagnosis A. Prostate, Left Mid [place]: - Benign prostatic tissue. B. Prostate, Left Lat [place]: - Benign prostatic tissue. C. Prostate, Left Mid Mid: - Benign prostatic tissue. D. Prostate, Left Lat Mid: - Benign prostatic tissue. E. Prostate, Left Mid Base: - Benign prostatic tissue. F. Prostate, Left Lat Base: - Benign prostatic tissue. G. Prostate, Right Mid [place]: - Benign prostatic tissue. H. Prostate, Right Lat [place]: - Benign prostatic tissue. I. Prostate, Right Mid Mid: - Benign prostatic tissue. J. Prostate, Right Lat Mid: - Benign prostatic tissue. K. Prostate, Right Mid Base: - Benign prostatic tissue. L. Prostate, Right Lat Base: - Benign prostatic tissue. 06/13/2024 8:51 AM [facility] Clinical Information Elevated PSA PSA: 7.1 (04/24/24) [id number] 06/13/2024 8:51 AM [facility] Gross Description A. Prostate, Left Mid Underwood: Received, properly labeled, are two H and E stained slides and two unstained slides. B. Prostate, Left Lat [place]: Received, properly labeled, are two H and E stained slides and two unstained slides. C. Prostate, Left Mid Mid: Received, properly labeled, are two H and E stained slides and two unstained slides. D. Prostate, Left Lat Mid: Received, properly labeled, are two H and E stained slides and two unstained slides. E. Prostate, Left Mid Base: Received, properly labeled, are two H and E stained slides and two unstained slides. F. Prostate, Left Lat Base: Received, properly labeled, are two H and E stained slides and two unstained slides. G. Prostate, Right Mid [place]: Received, properly labeled, are two H and E stained slides and two unstained slides. H. Prostate, Right Lat [place]: Received, properly labeled, are two H and E stained slides and two unstained slides. I. Prostate, Right Mid Mid: Received, properly labeled, are two H and E stained slides and two unstained slides. J. Prostate, Right Lat Mid: Received, properly labeled, are two H and E stained slides and two unstained slides. K. Prostate, Right Mid Base: Received, properly labeled, are two H and E stained slides and two unstained slides. L. Prostate, Right Lat Base: Received, properly labeled, are two H and E stained slides and two unstained slides. /al 06/13/2024 8:51 AM [facility] Disclaimer Unless otherwise specified, all tissue is 10% NB formalin fixed and paraffin embedded. Technical pathology services provided by [facility] at [address] [place] [address] [address], [place] [address] (CLIA #[id number]/ Melisa Ortiz MD, Director Of Channel Marketing) 06/13/2024 8:51 AM EST [facility] Tissue Prostate / Unknown 06/09/20242023 9:58 AM EST Tissue specimen (specimen) Prostate / Unknown 06/09/2024 06/11/2024 9: 58 AM EST Tissue specimen (specimen) Prostate / Unknown 06/09/2024 06/11/2024 9: 58 AM EST Tissue specimen (specimen) Prostate / Unknown 06/09/2024 06/11/2024 9: 58 AM EST Tissue specimen (specimen) Prostate / Unknown 06/09/2024 06/11/2024 9: 58 AM EST Tissue specimen (specimen) Prostate / Unknown 06/09/2024 06/11/2024 9: 58 AM EST Tissue specimen (specimen) Prostate / Unknown 06/09/2024 06/11/2024 9: 58 AM EST Tissue specimen (specimen) Prostate / Unknown 06/09/2024 06/11/2024 9: 58 AM EST Tissue specimen (specimen) Prostate / Unknown 06/09/2024 06/11/2024 9: 58 AM EST Tissue specimen (specimen) Prostate / Unknown 06/09/2024 06/11/2024 9: 58 AM EST Tissue specimen (specimen) Prostate / Unknown 06/09/2024 06/11/2024 9: 58 AM EST Tissue specimen (specimen) Prostate / Unknown 06/09/2024 06/11/2024 9: 58 AM EST us Tristin Rodriguez MD LAB PATHOLOGY ORDERABLES Final Result [facility] [address] [place] [address], documented in this encounter Visit Diagnoses Diagnosis Elevated prostate specific antigen (PSA) documented in this encounter
== END 2024-12-05 11:00 | disposition home or self-care (01) ==
LOC: HO.HMCHD 10:00
PROVIDERS: PCP Internal Medicine; Visit Provider Physician Assistant
DX: B37.0 Candidal stomatitis (principal); I26.99 Other pulmonary embolism without acute cor pulmonale; E78.5 Hyperlipidemia, unspecified; R97.20 Elevated prostate specific antigen [PSA]; N40.0 Benign prostatic hyperplasia without lower urinary tract symptoms; J42 Unspecified chronic bronchitis

== ENCOUNTER → 2024-12-05 09:59 | Outpatient (BNVA) | payer MEDICARE, OTHER, SELFPAY | PROVIDERS: PCP Internal Medicine; Visit Provider Physician Assistant | DX: N40.0 Benign prostatic hyperplasia without lower urinary tract symptoms (principal); E78.5 Hyperlipidemia, unspecified; R97.20 Elevated prostate specific antigen [PSA]; B37.0 Candidal stomatitis; J42 Unspecified chronic bronchitis; Z79.01 Long term (current) use of anticoagulants | CPT/HCPCS: 96127; 99202 ==

== ENCOUNTER 2024-12-31 11:01 | Outpatient (REF) | payer MEDICARE, OTHER, SELFPAY ==
[2024-12-31 13:20] LABS: MANUAL DIFF FLAG NO
[2024-12-31 13:25] LABS: Basophils Absolute Auto 0.1 X10*3/uL (0.0-0.2); Basophils Percent Auto 0.8 % (0-2); Eosinophils Absolute Auto 0.2 X10*3/uL (0.0-0.4); Eosinophils Percent Auto 2.5 % (0-4); Hematocrit 40.5 % (42.0-52.0); Hemoglobin 13.9 g/dl (14.0-18.0); Imm Gran Abs Auto 0.01 X10*3/uL (0.00-0.03); Imm Gran Pct Auto 0.2 % (0.0-0.4); Lymphocytes Absolute Auto 1.8 X10*3/uL (1.2-4.9); Lymphocytes Percent Auto 28.9 % (20-40); Mean Corpuscular HGB Conc 34.3 g/dl (31.0-36.0); Mean Corpuscular Hemoglobin 31.8 pg (27.0-33.0); Mean Corpuscular Volume 92.7 fL (80.0-98.0); Mean Platelet Volume 10.3 fL (9.4-12.4); Monocytes Absolute Auto 0.7 X10*3/uL (0.1-1.2); Monocytes Percent Auto 11.3 % (2-11); Neutrophils Absolute Auto 3.4 x10*3/uL (2.0-8.3); Neutrophils Percent Auto 56.3 % (45-73); Platelet Count 198 X10*3/uL (160-400); Red Blood Count 4.37 X10*6/uL (4.60-5.80); Red Cell Distribution Width 13.6 % (11.0-16.0); White Blood Count 6.1 X10*3/uL (4.8-10.8)
[2024-12-31 13:32] LABS: Estimated Average Glucose 97 mg/dL
[2024-12-31 13:37] LABS: Anion Gap 12 (12-20); Blood Urea Nitrogen 16 mg/dL (9-16); Calcium 9.3 mg/dL (8.4-10.2); Carbon Dioxide 26 mmol/L (22-29); Chloride 109 mmol/L (96-108); Cholesterol 176 mg/dL (<200); Estimated Glomerular Filt Rate > 60; Glucose Random 98 mg/dL (60-115); HDL Cholesterol 48 mg/dL (>40); LDL Cholesterol Calculated 107 mg/dL (<100); Sodium 143 mmol/L (135-145); Triglycerides 105 mg/dL (<150)
== END 2024-12-31 11:02 | disposition home or self-care (01) ==
LOC: HO.HMGCLDS 11:01
PROVIDERS: PCP Internal Medicine; Visit Provider Physician Assistant
DX: E78.5 Hyperlipidemia, unspecified (principal); Z13.1 Encounter for screening for diabetes mellitus
CPT/HCPCS: 36415; 80048; 80061; 83036; 85025

== ENCOUNTER 2025-01-05 08:20 | Outpatient (AMB) | payer MEDICARE, OTHER, SELFPAY ==
--- OUTSIDE RECORDS SUMMARY | 2025-01-05 08:25 | XMS_ITS | Data Portability ---
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 This visit is a zold-pl-htgk visit during the COVID-19 pandemic Public Health [...] to: ? Additional clinical staff and medical agricultural technical officer time for pre-screening ? Time spent reviewing [...] with this appointment. This visit is a bdjk-ug-lqaj visit during the COVID-19 pandemic Public Health [...] to: ? Additional clinical staff and medical agricultural technical officer time for pre-screening ? Time spent reviewing [...] with this appointment. This visit is a hirr-yw-tpun visit during the COVID-19 pandemic Public Health [...] all services provided today in accordance with [facility] and CDC guidelines. There was additional practice expense incurred due to the Public Health Emergency. This additional expense includes but is not limited to: ? Additional clinical staff and medical agricultural technical officer time for pre-screening ? Time spent reviewing [...] with this appointment. This visit is a wubi-gv-dvwk visit during the COVID-19 pandemic Public Health [...] all services provided today in accordance with [facility] and CDC guidelines. There was additional practice expense incurred due to the Public Health Emergency. This additional expense includes but is not limited to: ? Additional clinical staff and medical agricultural technical officer time for pre-screening ? Time spent reviewing [...] Orders amoxicillin 500 mg tablet 2020 021 [id number], [phone] [place], [address], 01:05:23 Patient TargetsNo targets recorded. Patient InstructionsNo instructions recorded. Reason for Referral None Reported. Results Created Date Observation Date Name Description Value Unit Range Abnormal Flag Note LastModifiedBy Organization Detail LastModifiedTime 04/26/20 20 04/26/2020 XR, bone lengt h, hip to ankle http:/ [email or web address]/opa lweb/I ntegra tionPr ocesso r.aspx ?CMD=O PENSTU DY&ACC ESSION =94390 [address] [place] [address] & Shoulder [address], [address], 04/26/2020 13:15:30 06/14/20 20 06/14/2020 XR, bone lengt h, hip to ankle http:/ /[email or web address]/opa lweb/I ntegra tionPr ocesso r.aspx ?CMD=O PENSTU DY&ACC ESSION =32781 [id number] [place] [address] & Shoulder [address], [address], 06/14/2020 12:44:50 09/20/19 21 09/20/2020 XR, knee http:/ [email or web address]/opa lweb/I ntegra tionPr ocesso r.aspx ?CMD=O PENSTU DY&ACC ESSION =88981 25E931 [address], [address], 09/20/2020 13:00:34 07/04/20 21 07/04/2021 XR, knee http:/ /[email or web address]/opa lweb/I ntegra tionPr ocesso r.aspx ?CMD=O PENSTU DY&ACC ESSION =16106 [id number] [address], [address], 07/04/2021 15:03:56 Result Notes None recorded. Procedures Surgical History Date Name Laterality Status Provider Name and Address Organization Details Recorded Time 03/25/20 20 Orthopaedic Surgery completed Fifi Fountain [facility] 04/26/2020 09:50:06 03/11/20 19 total knee replacement completed Fifi Fountain [facility] 10/21/2019 14:39:39 12/29/19 09 Total knee arthroplasty completed Fifi Fountain [facility] 10/21/2019 14:43:33 Imaging Results None recorded. Procedure Notes None recorded. Medical Equipment None Reported. Allergies Allergen ID Allergen Name Allergen Category Reaction Reaction Severity Criticality Documentation Date Start Date Code Code System Note Provider Name and Address Organization Details Recorded Time 584991 Product containin g penicilli n (product) medicatio n hives Not available Not available 10/21/2019 92120 8001 SNOMED Fifi gonzalez [facility] 0 14:39:01 735338 Substance with sulfonami de structure and antibacte rial mechanism of action (substanc e) medicatio n hives Not available Not available 10/21/2019 41692 8003 SNOMED Fifi gonzalez [facility] 0 14:39:16 Medications Name Sig Start Date [...] THEN 1 TABLET TWO TIMES A DAY ALEXANDRA Talamantes 07/03 completed Not Available Not Available Not [...] Updated DateTime 09/20/2020 172.72 cm 22.5 kg/m2 22009.67 g Maximilain Rowell [facility] 09/20/2020 12:42:48 Date Recorded Body height Body mass index (BMI) Body weight Provider Name and Address Organization Details Last Updated DateTime 04/26/2020 172.72 cm 22.8 kg/m2 83395.86 g Fifi Fountain [facility] 04/26/2020 12:33:53 Date Recorded Body height Body mass index (BMI) Body weight Provider Name and Address Organization Details Last Updated DateTime 05/22/2022 170.18 cm 23.2 kg/m2 99518.67 g Ivone Espino [facility] 05/22/2022 15:20:52 Date Recorded Body height Body mass index (BMI) Body weight Provider Name and Address Organization Details Last Updated DateTime 06/14/2020 172.72 cm 22.5 kg/m2 11646.67 g HIGINIO PAIZ MD [address] [place] [address], [phone] 06/14/2020 12:24:00 Date Recorded Body height Body mass index (BMI) Body weight Provider Name and Address Organization Details Last Updated DateTime 07/04/2021 172.72 cm 22.8 kg/m2 53686.86 g Fifi Fountain [facility] 07/04/2021 14:36:30 Social History Question Answer Notes LastModified by Organizat ion Details LastModified Time Tobacco Smoking Status Never Smoker Fifi gonzalez [facility] 10/21/2019 14:40:04 Auto Related Injury? No Information not available 07/04/2021 What Is Your Level Of Caffeine Consumption? None Information not available 03/15/2020 If Patient Spent Time In [facility] - Does The Patient Live In [facility]? No Information not available 07/04/2021 In The 14 Days Before Symptom Onset, Did The Patient Spend Time In [facility]? No Information not available 07/04/2021 Have You Been To An Area Known To Be High Risk For COVID-19? No Information not available 07/04/2021 Have You Had Cortisone? Yes Information not available 07/04/2021 How Much Tobacco Do You Smoke? No Information not available 07/04/2021 What Types Of Sporting Activities Do You Participate In? Biking, Hiking, Skiing Information not available 03/15/2020 How Many Years Have You Smoked Tobacco? 0 Information not available 07/04/2021 Work Related Injury? No Information not available 07/04/2021 Sex: Unknown Functional Status Question Answer Note LastModified by Organizat ion Details LastModified Time What is your level of alcohol consumption? Occasional Information not available 10/21/2019 Do you or have you ever used smokeless tobacco? Never used smokeless tobacco Information not available 03/15/2020 Are you currently employed? No [email or web address] Information not available 05/22/2022 What is your occupation? retired--06/16 Information not available 03/15/2020 Do you or have you ever used e-cigarettes or vape? Never used electronic cigarettes Information not available 10/21/2019 What is your exercise level? Moderate abraziel Information not available 06/14/2020 Mental Status None recorded. Family History Relationship Description Onset Age of this Age Resolved Age Notes LastModified by Organization Details LastModified Time Maternal Grandmother Family history of malignant neoplasm Not available 09/28 14:44:25 Mother Family history of malignant neoplasm Not available 09/28 14:44:25 Medical History Condition Response HIV or AIDS N High Blood Pressure N MRSA N Weight Gain / Loss N Angina, Heart Failure or Attack N Night Sweats N Osteoarthritis / Rheumatoid arthritis / Other Y Cancer N Stroke N Visual Loss or Glaucoma N Heart Problems N Emphysema / Chronic Bronchitis N Reaction to General/Local Anesthesia N Hepatitis / Jaundice N Kidney / Bladder Infections N Bleeding Disorder Y Chemical Dependency / Alcoholism N Thyroid Disorder N Pulmonary Embolism Y Irregular Heartbeat Y Any Other Significant Medical Issues N Hearing Loss N Seizures / Epilepsy N Ulcer / Stomach Bleeding / Indigestion N Blood Clots / Phlebitis Y Depression or Anxiety N Diabetes N Psoriasis / Skin Rash N Heart Disease N Asthma / Shortness of Breath / 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 Immunizations Vaccine Type Date Status Note Provider Nam e and Address Organization Details Recorded Time COVID-19, mRNA, LNP-S, PF, 30 mcg/0.3 mL dose 1 completed Fifi gonzalez [facility] 07/04/2021 14:37:39 COVID-19, mRNA, LNP-S, PF, 30 mcg/0.3 mL dose 1 completed Fifi gonzalez [facility] 07/04/2021 14:37:44 COVID-19, mRNA, LNP-S, PF, 30 mcg/0.3 mL dose 1 completed Fifi gonzalez [facility] 07/04/2021 14:37:49 Influenza, split virus, quadrivalent, preservative 0 completed HIGINIO PAIZ MD [address] [place] [address], [phone], [facility] 06/14/2020 12:25:11 Past Encounters Encounter ID Performer Location Encounter Start Date Encounter Closed Date Diagnosis/Indication Diagnosis SNOMED-CT Code Diagnosis ICD10 Code Diagnosis Note [id number] HIGINIO PAIZ MD [address] [address] 10/22/2019 10:26:14 10/22/2019 14:46:01 Hemarthrosis of right knee [id number] 43757 M25.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 Patient will be in contact with the office. Please see dictation for additional details. [id number] HIGINIO PAIZ MD [facility] [address] [place] [id number] 03/15/2020 15:07:22 03/15/2020 16:20:58 Hemarthrosis of right knee [id number] 92999 M25.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 Patient will be in contact with the office. Please see dictation for additional details. [id number] HIGINIO PAIZ MD [facility] [address] [place] [id number] 04/26/2020 12:10:54 04/26/2020 13:17:35 Hemarthrosis of right knee [id number] 90791 M25.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 Patient will be in contact with the office. Please see dictation for additional details. [id number] HIGINIO PAIZ MD [facility] [address] [place] [id number] 06/14/2020 11:55:33 06/14/2020 12:58:47 Recurrent hematuria 506801078 N02.9 [id number] HIGINIO PAIZ MD [facility] [address] [place] [id number] 09/20/2020 12:19:30 09/20/2020 13:26:51 [id number] HIGINIO PAIZ MD [facility] [address] [place] [id number] 07/04/2021 13:51:13 07/04/2021 15:18:03 Hematoma of lower leg 075129148 S80.11XD recurrent, right TKR, resolved [id number] HIGINIO PAIZ MD [facility] [address] [place] [id number] 1 05/22/2022 13:45:33 05/22/2022 16:07:44 Hematoma of right knee region [id number] 8245252 S80.01XD Health Concerns Section Related Observation LastModified by Organization Detai ls LastModified Time None Recorded Concern Status LastModified by Organization Details LastModified Time None Recorded Advance Directives Directive None Recorded Payers Insurance Date Sequence Insurance Name Policy Number Policy Gee Covered Member ID Gee Member ID Guarantor Name 05/17/2022 [employer] - SPECIALITY CLAIMS (MEDICARE DME REGION A) Malik Wylie [id number] Malik Wylie 05/15/2022 1 [place]IC[place]: [employer] Malik Wylie [id number] Malik Wylie 07/11/2021 2 [facility] [id number] Malik Wylie [id number] Malik Wylie 05/19/2022 2 [facility] - PLAN 1 (MEDICARE SUPPLEMENT) [id number] Malik Wylie [id number] Malik Wylie 07/11/2021 2 [facility] [id number] 1 Malik Wylie [id number] Malik Wylie Notes Date Note Type Note [...] chest pain or palpitations. HIGINIO PAIZ MD [address] [place] [address], [phone], [facility] 04/29/2020 20:11:17 06/14/2020 text/html CHIEF COMPLAINT: Status [...] the last 2 weeks. HIGINIO PAIZ MD [address] [place] [address], [phone], [facility] 06/20/2020 20:21:41 09/20/2020 text/html CHIEF COMPLAINT: Status [...] screening completed and negative. HIGINIO PAIZ MD [address] [place] [address], [phone], [facility] 09/28/2020 00:18:32 07/04/2021 text/html CHIEF COMPLAINT: Status post irrigation debridement exploration for return hematoma right knee.HISTORY OF PRESENT ILLNESS: Patient presents for planned follow-up. He is actually doing very well. He is happy. He has not had any episodes of recurrent hematoma in over a year. He is biking. 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 His pain is well controlled. He [...] per HPI. Otherwise, negative. HIGINIO PAIZ MD [address] [place] [address], [phone], [facility] 07/15/2021 11:32:58 05/22/2022 text/html Malik presents today [...] pleased with his progress. HIGINIO PAIZ MD [address] [place], [phone], [facility] 06/05/2022 09:28:20
--- NOTE | 2025-01-05 08:38 | A.OFFPC_ITS ---
Vital Signs 01/05/25 08:41 Height 5 ft 7 in Weight 153 lb BMI 24.0 BP 128/80 Blood Pressure Location Lt brachial Position Sitting Pulse 72 Pulse Source Pulse Oximeter Temp 97.9 F Temp Source Axillary Pulse Oximetry (%) 98 Oxygen Delivery Method Room Air Intake Visit Reasons: Thrush not resolved Physical Therapy Aide Required: No Accompanied by: Self / Same As Patient Allergies Penicillins Allergy (Severe, Verified 01/05/25 09:06) hives Sulfa (Sulfonamide Antibiotics) Allergy (Severe, Verified 01/05/25 09:06) Hives Medication List - Last Reconciled 01/05/25 by Lico Brown MD albuterol sulfate 90 mcg/actuation inhalation apixaban (Eliquis) 2.5 mg PO BID atorvastatin 20 mg PO DAILY epinephrine (EpiPen) 0.3 mg (0.3 mL) IM .Q15 min PRN tadalafil 20 mg PO tamsulosin 0.4 mg PO QPM Tobacco use date assessed: 01/05/25 Fall risk assessment: No Falls in past year Last assessed Fall Risk: 01/05/25 Dental Screening Dental Screen Date: 01/05/25 Did you have a dental visit in the last 12 months?: Yes Did you have a dental problem in the last 6 months where you did not have access to dental care?: No PFSH Medical History Chronic bronchitis BPH (benign prostatic hyperplasia) Elevated PSA Bilateral pulmonary embolism Hyperlipidemia Surgical History History of colonoscopy (~04/02/15) Family History Mother Cancer Father Blood clot in vein Social History Housing: Apartment Patient Tobacco Use Status: Never used Tobacco e-Cigarette/Vaping Use: Never Used service: No Current occupational status: retired Cognitive needs: No Hearing needs: No Vision needs: Yes (rx glasses) Questionnaire PHQ-9 Over the last 2 weeks, how often have you been bothered by any of the following problems? 1. Little interest or pleasure in doing things: not at all 2. Feeling down, depressed, or hopeless: not at all 3. Trouble falling or staying asleep, or sleeping too much: not at all 4. Feeling tired or having little energy: not at all 5. Poor appetite or overeating: not at all 6. Feeling bad about yourself - or that you are a failure or have let yourself or your family down: not at all 7. Trouble concentrating on things, such as reading the newspaper or watching television: not at all 8. Moving or speaking so slowly that other people could have noticed. Or the opposite - being so fidgety or restless that you have been moving around a lot more than usual: not at all 9. Thoughts that you would be better off or of hurting yourself in some way: not at all Total score: 0 Depression Screening Interpretation: Negative Depression Screening Done: Yes Source: Developed by Drs. Foreign Moffett, Belia Tapia, Bhavesh Ty and colleagues, with an educational jean from [employer]. Thrive Questionnaire Date Thrive assessed: 12/05/24 I am a: Patient Within the past 12 months, did the food you bought not last and you didn't have the money to get more?: Never true Within the past 12 months, did you worry whether your food would run out before you got money to buy more?: Never true Do you have trouble paying for medicines?: No Do you have trouble getting transportation to medical appointments?: No Do you have trouble paying your heating and electricity bill?: No Do you have trouble taking care of your child, family member or friend?: No Do you have trouble with day-to-day activities such as bathing, preparing meals, shopping, managing finances, etc.?: No Are you currently unemployed and looking for a job?: No Are you interested in more education?: No THRIVE Score: 0 AUDIT C Alcohol Use Questionnaire (AUDIT-C) 1. How often do you have a drink containing alcohol?: Monthly or less 2. How many drinks containing alcohol do you have on a typical day when you are drinking?: 1 or 2 3. How often do you have six or more drinks on one occasion?: Less than monthly Total Score: 2 LA-7 AMB Questionnaire LA-7 Date LA - 7 assessed: 01/05/25 Feeling nervous, anxious, or on edge: 0 = Not at all Not being able to stop or control worryin = Not at all Worrying too much about different things: 0 = Not at all Trouble relaxin = Not at all Being so restless that it is hard to sit still: 0 = Not at all Becoming easily annoyed or irritable: 0 = Not at all Feeling afraid as if something awful might happen: 0 = Not at all Total LA-7 score (0-4 normal; 5-9 mild; 10-14 moderate; 15-21 severe): 0 Source: Developed by Drs. Foreign Moffett, Belia Tapia, Bhavesh Ty and colleagues, with an educational jean from [employer]. Physical exam (Primary Care) Vital Signs: Last Vital Signs Temp 97.9 F 01/05/25 08:41 Pulse 72 01/05/25 08:41 BP 128/80 01/05/25 08:41 Pulse Ox 98 01/05/25 08:41 Oxygen Delivery Method Room Air 01/05/25 08:41 BMI result Body Mass Index 24.0 Tobacco/Smoking Status: Tobacco use Status Tobacco use date assessed 01/05/25 01/05/25 08:46 Patient Tobacco Use Status Never used Tobacco 01/05/25 08:39 e-Cigarette/Vaping Use Never Used 01/05/25 08:39 PHQ-9: PHQ-9 Score PHQ-9: Total score 0 01/05/25 08:46 Depression Screening Interpretation: Negative Thrive Assessment: Date of Thrive Assessment Date Thrive assessed 12/05/24 01/05/25 08:39 Advance Care Planning discussion: Exists, not on file Date of discussion: 01/05/25 Forms completed: Health Care Proxy and MOLST Coding Level of Care Code Est Pt Level 4 (73948) Complex EM visit Add On G2211 Diagnoses Hyperlipidemia E78.5 Bilateral pulmonary embolism I26.99 BPH (benign prostatic hyperplasia) N40.0 Oropharyngeal candidiasis B37.0 Additional Codes Vital Signs *Quality* - Advance Care Planning discussion: Exists, not on file ([id number]) Assessment & Plan Assessment & Plan (1) Hyperlipidemia: Code(s): E78.5 - Hyperlipidemia, unspecified Category: Medical Plan: BW revd. Continue statins at same dosage (2) Bilateral pulmonary embolism: Comment: following COVID 19 infection. On eliquis indefinitely per hematology at [facility] Code(s): I26.99 - Other pulmonary embolism without acute cor pulmonale Category: Medical Plan: Continue Eliquis, prescription sent (3) BPH (benign prostatic hyperplasia): Code(s): N40.0 - Benign prostatic hyperplasia without lower urinary tract symptoms Category: Medical Plan: Followed up by urology. (4) Oropharyngeal candidiasis: Code(s): B37.0 - Candidal stomatitis Category: Medical Plan: Stop Fluconazole, Myclex troches. When he gets to the dentist, request for a biopsy of the tongue Plan History of Present Illness - The patient is a 69-year-old male presenting with persistent oral candidiasis. - Symptoms include white patches and burning sensation on the tongue since September. - Treatment has included two courses of clotrimazole lozenges, followed by fluconazole. - No throat involvement reported despite ongoing symptoms. - Diagnosed with an enlarged prostate, monitored bi-annually with negative biopsy results. - Follow-up in February for routine PSA and FreeProst PSA testing. - Complains of erectile dysfunction managed with tadalafil 20 mg but has issues maintaining an erection. - Attempted use of a constriction ring with uncertain fitting. - Background: exercise routine positively impacting overall health. Social History - Regular exercise regimen. Review of Systems - Gastrointestinal: Reports white patches and burning sensation on the tongue. - Genitourinary: Reports known enlarged prostate; denies any new urinary symptoms. - Male Reproductive: Reports erectile dysfunction; partial response to tadalafil. Physical Exam General: Cooperative and healthy appearing Nutritional Appearance: Well nourished Orientation/consciousness: Patient oriented x3 Limitations: No limitations Head: Normal to inspection General: Appearance normal, both eyes and all related structures Neck: Normal visual inspection Chest: Normal palpation of entire chest wall Respiratory: Normal respiratory effort Neurology: Patient oriented x3 Oral Cavity: Tongue: furrowed, whitish patch, easily removable without any bleeding Results Plan 1. Oral Candidiasis - Stop Fluconazole and mycelex troches - Lesion bx in the next dental visit. 2. Enlarged Prostate - Maintain urology evaluation and follow-up. - Conduct further investigation after PSA results. 3. Erectile Dysfunction - Maximize tadalafil efficacy. - Educate on constriction ring use. - Discuss alternative sexual techniques. Discussion Notes I discussed the persistence of oral candidiasis symptoms and potential adjustments to antifungal therapy. The enlarged prostate's evaluation and ongoing urology follow-up were confirmed, with additional testing pending. We reviewed the patient's erectile dysfunction management and the trial of a constriction ring, offering advice on its correct application to enhance effectiveness. I emphasized non-intercourse methods of achieving satisfaction, considering the psychological and physiological aspects of sexual function. Patient Instructions - Complete current course of fluconazole and report persistent symptoms. - Follow up on PSA testing with urology and attend scheduled appointment. - Continue tadalafil and review erectile dysfunction management with rings; ensure proper fitting. - Explore non-intercourse methods for sexual activity. - Maintain exercise routine for overall health.
[2025-01-05 08:41] VITALS: BP 128/80; PULSE 72; TEMP 36.6; O2SAT 98; BMI 24.0
== END 2025-01-05 09:03 | disposition home or self-care (01) ==
LOC: HO.HMCHD 08:21
PROVIDERS: PCP Internal Medicine; Visit Provider Internal Medicine
DX: E78.5 Hyperlipidemia, unspecified (principal); I26.99 Other pulmonary embolism without acute cor pulmonale; N40.0 Benign prostatic hyperplasia without lower urinary tract symptoms; B37.0 Candidal stomatitis; Z00.00 Encounter for general adult medical examination without abnormal findings

== ENCOUNTER → 2025-01-05 08:20 | Outpatient (BNVA) | payer MEDICARE, OTHER, SELFPAY | PROVIDERS: PCP Internal Medicine; Visit Provider Internal Medicine | DX: E78.5 Hyperlipidemia, unspecified (principal); I26.99 Other pulmonary embolism without acute cor pulmonale; N40.0 Benign prostatic hyperplasia without lower urinary tract symptoms; B37.0 Candidal stomatitis | CPT/HCPCS: 99212 ==